=== PATIENT | female | born 1930 | race Hispanic/Latino ===

== ENCOUNTER 2017-07-22 20:54 | Inpatient (IN) | payer MEDICARE ==
[2017-07-22 20:54] VITALS: BMI 26.5
--- NOTE | 2017-07-22 21:15 | C.PDOC ---
History Of Present Illness 87 year old female sent to the ER via EMS from retirement for SOB for the past 2 days. Patient was found in severe respiratory distress with an initial low pulse ox, she was placed on a nonrebreather with an increase of her pulse ox to the 90s, however, patient was still very tachypneic and in severe respiratory distress. On arrival to ER, patient was placed on a bipap with improvement of pulse ox to 97-98, however, patient is still in significant respiratory distress. Patient has a Hx of bladder cancer and shoulder fracture due to recent fall, cannot obtain further Hx due to respiratory distress. Prior records reviewed, patient has a Hx of dementia and has baseline confusion, she was living on her own until 07/10/17 when she fell and fractured her shoulder, since then she has been in a retirement. Time Seen by Provider: 07/22/17 21:11 Chief Complaint (Nursing): Respiratory Distress History Per: EMS History/Exam Limitations: no limitations Onset/Duration Of Symptoms: Days Current Symptoms Are (Timing): Still Present Associated Symptoms: Other (SOB) Recent travel outside of the [place]: No Additional History Per: Prior Records Past Medical History Reviewed: Historical Data, Nursing Documentation, Vital Signs Vital Signs: Last Vital Signs Temp Pulse 105 H 07/22/17 22:47 Resp 18 07/22/17 22:47 BP 124/67 07/22/17 22:47 Pulse Ox 98 07/22/17 22:49 - Medical History PMH: Arthritis, Dementia, Emphysema, HTN, Hypercholesterolemia, Hyperlipidemia, Pneumonia, Chronic Kidney Disease (BLADDER TUMOR/MASS) - [facility] Procedures IMMOBILIZATION OF LEFT UPPER ARM USING OTHER DEVICE (07/10/17) RETROGRADE PYELOGRAM (02/20/12) TRANSURETH BLADD BIOPSY (02/20/12) TU DESTRUC BLADD LES NEC (02/20/12) Family History: States: Unknown Family Hx - Social History Hx Alcohol Use: Yes (wine occassionally) Hx Substance Use: No Review Of Systems Review Of Systems: ROS cannot be obtained secondary to pt's inabilty to answer questions. (Due to respiratory distress) Physical Exam - Physical Exam Appears: Other (In acute respiratory distress) Skin: Warm, Dry, Jaundice, Mottled Head: Atraumatic, Normacephalic Eye(s): bilateral: Normal Inspection Nose: Normal Oral Mucosa: Moist Neck: Normal, Supple Chest: Symmetrical, No Tenderness Cardiovascular: Rhythm Regular (Tachycardic) Respiratory: No Rales, Rhonchi (Coarse to right base), No Wheezing Gastrointestinal/Abdominal: Soft, No Tenderness, Distention, No Guarding, No Rebound Back: No CVA Tenderness Neurological/Psych: Oriented x3, Normal Speech ED Course And Treatment - Laboratory Results Result Diagrams: 07/22/17 21:14 07/22/17 21:14 Lab Interpretation: Abnormal (Elevated BUN 91, Cr 2.2, BNP 43108, Trop 0.7110) ECG: Interpreted By Me ECG Rhythm: Sinus Rhythm, R BBB (incomplete with Q waves inferior and anterior septal) ECG Interpretation: Abnormal O2 Sat by Pulse Oximetry: 98 (on BIPAP) Pulse Ox Interpretation: Normal - Radiology CXR: Interpreted by Me CXR Interpretation: Yes: No Acute Disease Progress Note: Blood work, CTA, CXR, EKG, and urinalysis ordered. Patient placed on BIPAP and Morphine and Ativan administered. Reevaluation Time: 22:58 Reassessment Condition: Improved (Patient resting quietly without respiratroy distress.) - Physician Consult Information Outcome Of Conversation: Case discussed with Dr Murillo and Dr Brandt. Patient to be admitted to ICU for possible WA with CHF and acute renal failure. Disposition - Disposition Disposition: HOSPITALIZED Disposition Time: 23:01 Condition: IMPROVED - POA Present On Arrival: None - Clinical Impression Clinical Impression: Congestive heart failure, Myocardial infarct, Acute renal failure - Scribe Statement The provider has reviewed the documentation as recorded by the Scribe Austin Bueno All medical record entries made by the Scribe were at my direction and personally dictated by me. I have reviewed the chart and agree that the record accurately reflects my personal performance of the history, physical exam, medical decision making, and the department course for this patient. I have also personally directed, reviewed, and agree with the discharge instructions and disposition.
[2017-07-22 21:16] LABS: BASO # 0.1 K/uL (0.0-0.2); BASO % 0.6 % (0.0-2.0); EOS % 0.3 % (0.0-4.0); LYMPH # 3.6 K/uL (1.0-4.3); MEAN CELL VOLUME 102.2 fL (81.0-99.0); MEAN CORPUSCULAR HEMOGLOBIN 34.1 pg (27.0-31.0); MEAN CORPUSCULAR HGB CONC 33.3 g/dL (33.0-37.0); MEAN PLATELET VOLUME 9.7 fL (7.2-11.7); MONO # 0.9 K/uL (0.0-0.8); MONO % 9.8 % (0.0-10.0); NEUT # 4.8 K/uL (1.8-7.0); NEUT % 51.3 % (50.0-75.0); NRBC % 0.3 % (0.0-2.0); RBC 3.22 Mil/uL (3.80-5.20); RED CELL DISTRIBUTION WIDTH 16.5 % (11.5-14.5); WHITE BLOOD COUNT 9.3 K/uL (4.8-10.8)
[2017-07-22 21:30] LABS: ALB/GLOB RATIO 0.9 (1.0-2.1); ALBUMIN 3.7 g/dL (3.5-5.0)
[2017-07-22 21:32] LABS: ARTERIAL BLOOD GAS O2 SAT 99.9 % (95-98); ARTERIAL BLOOD GAS PCO2 29 mm/Hg (35-45); ARTERIAL BLOOD GAS PH 7.36 (7.35-7.45); ARTERIAL BLOOD GAS PO2 364 mm/Hg (80-100); ARTERIAL BLOOD GAS TCO2 17.3 mmol/L (22-28)
[2017-07-22 21:38] LABS: PROTHROMBIN TIME 13.6 SECONDS (9.7-12.2)
[2017-07-22 21:39] LABS: INR 1.2
[2017-07-22 22:42] LABS: TROPONIN I 0.711 ng/mL (0.00-0.120)
[2017-07-22 23:07] LABS: SQUAMOUS EPITHIAL 136 /hpf (0-5); URINE BILIRUBIN NEGATIVE (NEGATIVE); URINE BLOOD NEGATIVE (NEGATIVE); URINE CLARITY Hazy (Clear); URINE GLUCOSE (UA) NORMAL (Normal); URINE LEUKOCYTE ESTERASE TRACE Leu/uL (Negative); URINE PROTEIN 1+ mg/dL (NEGATIVE); URINE UROBILINOGEN NORMAL mg/dL (0.2-1.0)
[2017-07-22 23:16] LABS: URINE COLOR YELLOW (YELLOW)
[2017-07-23] MEDS ORDERED: Morphine 4 MG/ML VIAL IVP PRN (00:15)
[2017-07-23] MEDS ORDERED: Furosemide 100 MG in Sodium Chloride 0.9% 90 ML IVP SCH (00:15)
--- NOTE | 2017-07-23 00:23 | CP.PCM.CON ---
History of Present Illness - History of Present Illness History of Present Illness: Chief command: Shortness of breath HPI: 87-year-old female with a history of dementia, arthritis, emphysema hypertension I cholesterol, renal insufficiency. Patient recently had an incident of fall, fracture right humerus, following that the patient went to rehabilitation. While she was in the rehabilitation she was having some difficulty in breathing for 2 days, today she was found increasing SOB, and was transferred to in hospital because of increasing worsening shortness of breath. Patient was placed on nonrebreather, under transferred to [facility] emergency room. In the hospital patient had a severe respiratory distress, given Ativan and morphine, placed on BiPAP, after that she felt slightly better. Now she is feeling somewhat better, still on BiPAP, some respiratory distress noted, denies any chest pain. No nausea no vomiting. She denies any vomiting she denies any cough. No fever no chills. Past medical history: Arthritis, dementia, COPD, high cholesterol chronic renal failure Allergies no known drug allergy Personal history nonsmoker nonalcoholic Patient was living by herself. Recently transferred to rehabilitation Family history noncontributory Review of system: Patient complaining of respiratory distress. Dizziness noted. No nausea no vomiting no fever. But complaining of pain generalized On examination: Currently patient is on BiPAP. Patient is slightly morning. Vital signs are stable otherwise. Temperature normal chest bilateral good air entry no wheezing or rales noted regular heart sound nontender abdomen no pedal edema Patient's labs reviewed Elevated BUN/creatinine level noted. Elevated proBNP level noted. Borderline hemoglobin. Chest x-ray nonspecific. CT of the head is currently pending Assessment and recommendation: 87-year-old female with multiple medical history recently hospitalized with this fall, right humeral fracture transferred to rehabilitation. Patient is currently admitted to the hospital with acute respiratory distress. Positive troponin noted. Non-ST elevation on the cardiogenic shock cannot be ruled out. Patient is also having worsening renal insufficiency Underlying pulmonary embolism cannot be ruled out. At this time there is no evidence of infection. We'll closely monitor. Respiratory support BiPAP. Bronchodilators. Fluid monitoring, diuretics. Cardiology evaluation and echocardiogram. Patient will been admitted to the intensive care unit to closely monitor. Past Patient History - Past Social History Smoking Status: Former Smoker - CARDIAC Hx Hypercholesterolemia: Yes Hx Hypertension: Yes - PULMONARY Hx Emphysema: Yes Hx Pneumonia: Yes - NEUROLOGICAL Hx Dementia: Yes - HEENT Hx HEENT Problems: No - RENAL Hx Chronic Kidney Disease: Yes (BLADDER TUMOR/MASS) - ENDOCRINE/METABOLIC Hx Endocrine Disorders: No - HEMATOLOGICAL/ONCOLOGICAL Hx Blood Transfusions: No Hx Blood Transfusion Reaction: No - INTEGUMENTARY Hx Dermatological Problems: Yes Hx Psoriasis: Yes (EXSTENSIVE SPECIALLY TO WHOLE BACK AND BUTTOCKS.FLUSHED SKIN. ) - MUSCULOSKELETAL/RHEUMATOLOGICAL Hx Arthritis: Yes - GENITOURINARY/GYNECOLOGICAL Hx Genitourinary Disorders: Yes Hx Bladder Cancer: Yes - PSYCHIATRIC Hx Substance Use: No - SURGICAL HISTORY Hx Surgeries: Yes (TONSILLECTOMY,BLADDER SX- TURBT,TONSILLECTOMY) - ANESTHESIA Hx Anesthesia Reactions: Yes (diff waking up) Hx Malignant Hyperthermia: No Meds Allergies/Adverse Reactions: Allergies Allergy/AdvReac Type Severity Reaction Status Date / Time No Known Allergies Allergy Verified 07/22/17 21:12 - Medications Medications: Current Medications Enoxaparin Sodium (Lovenox) 40 mg SC DAILY [facility] Furosemide (Lasix) 20 mg IVP DAILY [facility] Morphine Sulfate (Morphine) 2 mg IVP Q8 PRN PRN Reason: Pain, severe (8-10) Results - Vital Signs Recent Vital Signs: Last Vital Signs Temp Pulse 103 H 07/22/17 23:39 Resp 17 07/22/17 23:39 BP 116/73 07/22/17 23:39 Pulse Ox 100 07/22/17 23:39 - Labs Result Diagrams: 07/22/17 21:14 07/22/17 21:14 Labs: Laboratory Results - last 24 hr 07/22/17 07/22/17 07/22/17 21:14 21:14 21:14 WBC 9.3 RBC 3.22 L Hgb 11.0 Hct 33.0 L MCV 102.2 H MCH 34.1 H MCHC 33.3 RDW 16.5 H Plt Count 155 MPV 9.7 Neut % (Auto) 51.3 Lymph % (Auto) 38.0 [place] % (Auto) 9.8 Eos % (Auto) 0.3 Baso % (Auto) 0.6 Neut # (Auto) 4.8 Lymph # (Auto) 3.6 [place] # (Auto) 0.9 H Eos # (Auto) 0.0 Baso # (Auto) 0.1 PT 13.6 H INR 1.2 APTT 25 D-Dimer, Quantitative Cancelled Puncture Site pCO2 pO2 HCO3 ABG pH ABG Total CO2 ABG O2 Saturation ABG Base Excess Bertin Test ABG Potassium A-a O2 Difference Respiratory Index Glucose Lactate Vent Mode Mechanical Rate FiO2 Inspiratory BiPAP Expiratory BiPAP Crit Value Called To Crit Value Called By Crit Value Read Back Blood Gas Notified Time Sodium 146 Potassium 5.5 H Chloride 110 H Carbon Dioxide 17 L Anion Gap 25 H BUN 91 H Creatinine 2.2 H Est GFR ( Amer) 26 Est GFR (Non-Af Amer) 21 Random Glucose 189 H Calcium 10.0 Phosphorus 7.2 H Magnesium 2.5 H Total Bilirubin 1.5 H AST 67 H D ALT 45 Alkaline Phosphatase 63 Troponin I NT-Pro-B Natriuret Pep Total Protein 7.8 Albumin 3.7 Globulin 4.1 H Albumin/Globulin Ratio 0.9 L Arterial Blood Potassium Urine Color Urine Clarity Urine pH Ur Specific [place] Urine Protein Urine Glucose (UA) Urine Ketones Urine Blood Urine Nitrate Urine Bilirubin Urine Urobilinogen Ur Leukocyte Esterase Urine WBC (Auto) Urine RBC (Auto) Ur Squamous Epith Cells Hyaline Casts 07/22/17 07/22/17 07/22/17 21:26 21:40 22:18 WBC RBC Hgb Hct MCV MCH MCHC RDW Plt Count MPV Neut % (Auto) Lymph % (Auto) [place] % (Auto) Eos % (Auto) Baso % (Auto) Neut # (Auto) Lymph # (Auto) [place] # (Auto) Eos # (Auto) Baso # (Auto) PT INR APTT D-Dimer, Quantitative > 5250 H Puncture Site Rba pCO2 29 L pO2 364 H HCO3 19.0 L ABG pH 7.36 ABG Total CO2 17.3 L ABG O2 Saturation 99.9 H ABG Base Excess -7.7 L Bertin Test Na ABG Potassium 5.5 H A-a O2 Difference 313.0 Respiratory Index 0.9 Glucose 200 H Lactate 4.2 H* Vent Mode Bipap Mechanical Rate 14 FiO2 100.0 Inspiratory BiPAP 14 Expiratory BiPAP 7 Crit Value Called To Er physician Crit Value Called By Umberto rt Crit Value Read Back Y Blood Gas Notified Time 2130 Sodium 144.0 Potassium Chloride 112.0 H Carbon Dioxide Anion Gap BUN Creatinine Est GFR ( Amer) Est GFR (Non-Af Amer) Random Glucose Calcium Phosphorus Magnesium Total Bilirubin AST ALT Alkaline Phosphatase Troponin I 0.7110 H* NT-Pro-B Natriuret Pep 62221 H Total Protein Albumin Globulin Albumin/Globulin Ratio Arterial Blood Potassium 5.5 H Urine Color Urine Clarity Urine pH Ur Specific [place] Urine Protein Urine Glucose (UA) Urine Ketones Urine Blood Urine Nitrate Urine Bilirubin Urine Urobilinogen Ur Leukocyte Esterase Urine WBC (Auto) Urine RBC (Auto) Ur Squamous Epith Cells Hyaline Casts 07/22/17 22:59 WBC RBC Hgb Hct MCV MCH MCHC RDW Plt Count MPV Neut % (Auto) Lymph % (Auto) [place] % (Auto) Eos % (Auto) Baso % (Auto) Neut # (Auto) Lymph # (Auto) [place] # (Auto) Eos # (Auto) Baso # (Auto) PT INR APTT D-Dimer, Quantitative Puncture Site pCO2 pO2 HCO3 ABG pH ABG Total CO2 ABG O2 Saturation ABG Base Excess Bertin Test ABG Potassium A-a O2 Difference Respiratory Index Glucose Lactate Vent Mode Mechanical Rate FiO2 Inspiratory BiPAP Expiratory BiPAP Crit Value Called To Crit Value Called By Crit Value Read Back Blood Gas Notified Time Sodium Potassium Chloride Carbon Dioxide Anion Gap BUN Creatinine Est GFR ( Amer) Est GFR (Non-Af Amer) Random Glucose Calcium Phosphorus Magnesium Total Bilirubin AST ALT Alkaline Phosphatase Troponin I NT-Pro-B Natriuret Pep Total Protein Albumin Globulin Albumin/Globulin Ratio Arterial Blood Potassium Urine Color Yellow Urine Clarity Hazy Urine pH 6.0 Ur Specific [place] 1.016 Urine Protein 1+ H Urine Glucose (UA) Normal Urine Ketones Negative Urine Blood Negative Urine Nitrate Negative Urine Bilirubin Negative Urine Urobilinogen Normal Ur Leukocyte Esterase Trace Urine WBC (Auto) 27 H Urine RBC (Auto) 15 H Ur Squamous Epith Cells 136 H Hyaline Casts 6-10 H
[2017-07-23 06:40] LABS: BASO % 0.2 % (0.0-2.0); EOS % 0.1 % (0.0-4.0); HEMOGLOBIN 10.3 g/dL (11.0-16.0); LYMPH # 1.8 K/uL (1.0-4.3); LYMPH % 28.6 % (20.0-40.0); MEAN CELL VOLUME 100.8 fL (81.0-99.0); MEAN CORPUSCULAR HEMOGLOBIN 34.4 pg (27.0-31.0); MEAN CORPUSCULAR HGB CONC 34.1 g/dL (33.0-37.0); MEAN PLATELET VOLUME 9.9 fL (7.2-11.7); MONO # 0.8 K/uL (0.0-0.8); MONO % 12.1 % (0.0-10.0); NEUT # 3.7 K/uL (1.8-7.0); NRBC % 0.2 % (0.0-2.0); RED CELL DISTRIBUTION WIDTH 16.4 % (11.5-14.5); WHITE BLOOD COUNT 6.3 K/uL (4.8-10.8)
[2017-07-23 07:02] LABS: ALB/GLOB RATIO 0.9 (1.0-2.1); ALBUMIN 3.6 g/dL (3.5-5.0); CALCIUM 10.1 mg/dl (8.6-10.4)
[2017-07-23 07:18] LABS: CK-MB 5.21 ng/mL (0.0-3.38); TROPONIN I 0.771 ng/mL (0.00-0.120)
--- NOTE | 2017-07-23 09:23 | RAD ---
HISTORY: SOB COMPARISON: No prior. FINDINGS: LUNGS: Tubing extruded the right hemithorax. No definite airspace disease appreciated bilaterally. PLEURA: No significant pleural effusion identified, no pneumothorax apparent. CARDIOVASCULAR: Mild cardiomegaly is not excluded. No pulmonary vascular derangement. OSSEOUS STRUCTURES: No significant abnormalities. VISUALIZED UPPER ABDOMEN: Normal. OTHER FINDINGS: None. IMPRESSION: No acute pulmonary disease appreciable. Tubing obscures right hemithorax. Mild cardiomegaly not excluded. No pulmonary vascular congestion.
[2017-07-23] MEDS ORDERED: Enoxaparin 40 mg Syringe SC SCH (10:00)
[2017-07-23] MEDS ORDERED: Albuterol-Ipratrop 3 mg / 0.5 (3 ml) UD INH PRN (10:16)
[2017-07-23] MEDS: POLYETHYLENE GLYCOL 3350 17 GM/Dose PACKET PO SCH (10:40)
[2017-07-23] MEDS ORDERED: Dexmedetomidine Hydrochloride 200 MCG in Sodium Chloride 0.9% 48 ML IV PRN (12:35)
--- NOTE | 2017-07-23 17:46 | CP.PCM.CON ---
History of Present Illness - History of Present Illness History of Present Illness: Re: Respiratory distress Elevated serum troponin Chart imaging reviewed 87 year old patient presented with shortness of breath and placed on BIPAP with releif of hypoxemia and distress Post admission was noted to have elevated serum troponins and azotemia Patient has dementia and lives alone Denied chest pain prior heart disease Past medical Dementia Hyperlipidemia Azotemia COPD" Past surgery Fall/Fracture of the humerus (recent) Exam: No distress BIPAP in situ Lying flat Normal venous pressures Normal carotids ?PMI Normal heart sounds intensity No rub or murmurs 1+ edema bilateral pitting symmetrical DP ? EKG: unavailable CXR: reviewed Labs: reviewed Troponin 0.7 K 5.6 Glucose 189 Lactate 4.2 Creatinine 2.2 Hematocrit 33 D dimer 5250 BNP [id number] Past Patient History - Past Medical History & Family History Past Medical History?: Yes - Past Social History Smoking Status: Former Smoker - CARDIAC Hx Hypercholesterolemia: Yes Hx Hypertension: Yes - PULMONARY Hx Emphysema: Yes Hx Pneumonia: Yes - NEUROLOGICAL Hx Dementia: Yes - HEENT Hx HEENT Problems: No - RENAL Hx Chronic Kidney Disease: Yes (BLADDER TUMOR/MASS) - ENDOCRINE/METABOLIC Hx Endocrine Disorders: No - HEMATOLOGICAL/ONCOLOGICAL Hx Blood Transfusions: No Hx Blood Transfusion Reaction: No - INTEGUMENTARY Hx Dermatological Problems: Yes Hx Psoriasis: Yes (EXSTENSIVE SPECIALLY TO WHOLE BACK AND BUTTOCKS.FLUSHED SKIN. ) - MUSCULOSKELETAL/RHEUMATOLOGICAL Hx Arthritis: Yes - GENITOURINARY/GYNECOLOGICAL Hx Genitourinary Disorders: Yes Hx Bladder Cancer: Yes - PSYCHIATRIC Hx Substance Use: No - SURGICAL HISTORY Hx Surgeries: Yes (TONSILLECTOMY,BLADDER SX- TURBT,TONSILLECTOMY) - ANESTHESIA Hx Anesthesia Reactions: Yes (diff waking up) Hx Malignant Hyperthermia: No Meds Allergies/Adverse Reactions: Allergies Allergy/AdvReac Type Severity Reaction Status Date / Time No Known Allergies Allergy Verified 07/22/17 21:12 - Medications Medications: Current Medications Acetaminophen (Tylenol 325mg Tab) 650 mg PO Q4H PRN PRN Reason: Pain, Mild (1-3) Albuterol/Ipratropium (Duoneb 3 Mg/0.5 Mg (3 Ml) Ud) 3 ml INH RQ6 PRN PRN Reason: Wheezing Aspirin (Aspirin) 325 mg PO DAILY [facility] Last Admin: 07/23/17 10:00 Dose: Not Given Docusate Sodium (Colace) 100 mg PO BID [facility] Last Admin: 07/23/17 10:00 Dose: Not Given Enoxaparin Sodium (Lovenox) 40 mg SC DAILY [facility] Last Admin: 07/23/17 10:36 Dose: 40 mg Furosemide (Lasix) 20 mg IVP DAILY [facility] Last Admin: 07/23/17 10:36 Dose: 20 mg Pantoprazole Sodium (Protonix Inj) 40 mg IVP DAILY [facility] Last Admin: 07/23/17 10:36 Dose: 40 mg Polyethylene Glycol (Miralax) 17 gm PO DAILY [facility] Last Admin: 07/23/17 10:40 Dose: 17 gm Rosuvastatin Calcium (Crestor) 5 mg PO [facility] Thiamine HCl (Vitamin B1 Tab) 100 mg PO DAILY [facility] Last Admin: 07/23/17 10:00 Dose: Not Given Results - Vital Signs Recent Vital Signs: Last Vital Signs Temp 97.8 F 07/23/17 16:00 Pulse 92 H 07/23/17 17:03 Resp 14 07/23/17 17:03 BP 95/49 L 07/23/17 17:03 Pulse Ox 91 L 07/23/17 17:03 - Labs Result Diagrams: 07/23/17 06:34 07/23/17 06:37 Labs: Laboratory Results - last 24 hr 07/22/17 07/22/17 07/22/17 21:14 21:14 21:14 WBC 9.3 RBC 3.22 L Hgb 11.0 Hct 33.0 L MCV 102.2 H MCH 34.1 H MCHC 33.3 RDW 16.5 H Plt Count 155 MPV 9.7 Neut % (Auto) 51.3 Lymph % (Auto) 38.0 [place] % (Auto) 9.8 Eos % (Auto) 0.3 Baso % (Auto) 0.6 Neut # (Auto) 4.8 Lymph # (Auto) 3.6 [place] # (Auto) 0.9 H Eos # (Auto) 0.0 Baso # (Auto) 0.1 Differential Comment PT 13.6 H INR 1.2 APTT 25 D-Dimer, Quantitative Cancelled Puncture Site pCO2 pO2 HCO3 ABG pH ABG Total CO2 ABG O2 Saturation ABG Base Excess Bertin Test ABG Potassium A-a O2 Difference Respiratory Index Glucose Lactate Vent Mode Mechanical Rate FiO2 Inspiratory BiPAP Expiratory BiPAP Crit Value Called To Crit Value Called By Crit Value Read Back Blood Gas Notified Time Sodium 146 Potassium 5.5 H Chloride 110 H Carbon Dioxide 17 L Anion Gap 25 H BUN 91 H Creatinine 2.2 H Est GFR ( Amer) 26 Est GFR (Non-Af Amer) 21 Random Glucose 189 H Calcium 10.0 Phosphorus 7.2 H Magnesium 2.5 H Total Bilirubin 1.5 H AST 67 H D ALT 45 Alkaline Phosphatase 63 Total Creatine Kinase CK-MB (Mass) Troponin I NT-Pro-B Natriuret Pep Total Protein 7.8 Albumin 3.7 Globulin 4.1 H Albumin/Globulin Ratio 0.9 L Arterial Blood Potassium Urine Color Urine Clarity Urine pH Ur Specific [place] Urine Protein Urine Glucose (UA) Urine Ketones Urine Blood Urine Nitrate Urine Bilirubin Urine Urobilinogen Ur Leukocyte Esterase Urine WBC (Auto) Urine RBC (Auto) Ur Squamous Epith Cells Hyaline Casts 07/22/17 07/22/17 07/22/17 21:26 21:40 22:18 WBC RBC Hgb Hct MCV MCH MCHC RDW Plt Count MPV Neut % (Auto) Lymph % (Auto) [place] % (Auto) Eos % (Auto) Baso % (Auto) Neut # (Auto) Lymph # (Auto) [place] # (Auto) Eos # (Auto) Baso # (Auto) Differential Comment PT INR APTT D-Dimer, Quantitative > 5250 H Puncture Site Rba pCO2 29 L pO2 364 H HCO3 19.0 L ABG pH 7.36 ABG Total CO2 17.3 L ABG O2 Saturation 99.9 H ABG Base Excess -7.7 L Bertin Test Na ABG Potassium 5.5 H A-a O2 Difference 313.0 Respiratory Index 0.9 Glucose 200 H Lactate 4.2 H* Vent Mode Bipap Mechanical Rate 14 FiO2 100.0 Inspiratory BiPAP 14 Expiratory BiPAP 7 Crit Value Called To Er physician Crit Value Called By Umberto rt Crit Value Read Back Y Blood Gas Notified Time 2130 Sodium 144.0 Potassium Chloride 112.0 H Carbon Dioxide Anion Gap BUN Creatinine Est GFR ( Amer) Est GFR (Non-Af Amer) Random Glucose Calcium Phosphorus Magnesium Total Bilirubin AST ALT Alkaline Phosphatase Total Creatine Kinase CK-MB (Mass) Troponin I 0.7110 H* NT-Pro-B Natriuret Pep 34854 H Total Protein Albumin Globulin Albumin/Globulin Ratio Arterial Blood Potassium 5.5 H Urine Color Urine Clarity Urine pH Ur Specific [place] Urine Protein Urine Glucose (UA) Urine Ketones Urine Blood Urine Nitrate Urine Bilirubin Urine Urobilinogen Ur Leukocyte Esterase Urine WBC (Auto) Urine RBC (Auto) Ur Squamous Epith Cells Hyaline Casts 07/22/17 07/23/17 07/23/17 22:59 06:34 06:37 WBC 6.3 RBC 3.00 L Hgb 10.3 L Hct 30.3 L MCV 100.8 H MCH 34.4 H MCHC 34.1 RDW 16.4 H Plt Count 124 L D MPV 9.9 Neut % (Auto) 59.0 Lymph % (Auto) 28.6 [place] % (Auto) 12.1 H Eos % (Auto) 0.1 Baso % (Auto) 0.2 Neut # (Auto) 3.7 Lymph # (Auto) 1.8 [place] # (Auto) 0.8 Eos # (Auto) 0.0 Baso # (Auto) 0.0 Differential Comment PT INR APTT D-Dimer, Quantitative Puncture Site pCO2 pO2 HCO3 ABG pH ABG Total CO2 ABG O2 Saturation ABG Base Excess Bertin Test ABG Potassium A-a O2 Difference Respiratory Index Glucose Lactate Vent Mode Mechanical Rate FiO2 Inspiratory BiPAP Expiratory BiPAP Crit Value Called To Crit Value Called By Crit Value Read Back Blood Gas Notified Time Sodium 147 Potassium 5.5 H Chloride 113 H Carbon Dioxide 18 L Anion Gap 22 H BUN 96 H Creatinine 2.7 H Est GFR ( Amer) 20 Est GFR (Non-Af Amer) 17 Random Glucose 126 H Calcium 10.1 Phosphorus 7.8 H Magnesium 2.6 H Total Bilirubin 1.2 AST 44 H D ALT 49 Alkaline Phosphatase 68 Total Creatine Kinase 53 CK-MB (Mass) 5.21 H Troponin I 0.7710 H* NT-Pro-B Natriuret Pep Total Protein 7.6 Albumin 3.6 Globulin 4.0 H Albumin/Globulin Ratio 0.9 L Arterial Blood Potassium Urine Color Yellow Urine Clarity Hazy Urine pH 6.0 Ur Specific [place] 1.016 Urine Protein 1+ H Urine Glucose (UA) Normal Urine Ketones Negative Urine Blood Negative Urine Nitrate Negative Urine Bilirubin Negative Urine Urobilinogen Normal Ur Leukocyte Esterase Trace Urine WBC (Auto) 27 H Urine RBC (Auto) 15 H Ur Squamous Epith Cells 136 H Hyaline Casts 6-10 H Assessment & Plan - Assessment and Plan (Free Text) Assessment: 87 year old female presented with respiratory distress associated with azotemia elevated Ddimer troponin and serum BNP Mechanism of dyspnea is unclear; etiological candidates include cardiogenic/ iscehmic precipiated by azotemia versus pulmonary embolism Plan: EKG Echocardiogram Supportive therapy Anti-platelets
[2017-07-23] MEDS ORDERED: Sod Polystyrene Sulf 15 gm/60 ml Susp PO ONE (21:00)
[2017-07-24 06:19] LABS: BASO % 0.3 % (0.0-2.0); EOS % 0.1 % (0.0-4.0); HEMOGLOBIN 10.3 g/dL (11.0-16.0); LYMPH # 1.6 K/uL (1.0-4.3); LYMPH % 29.4 % (20.0-40.0); MEAN CORPUSCULAR HEMOGLOBIN 34.1 pg (27.0-31.0); MEAN CORPUSCULAR HGB CONC 34.1 g/dL (33.0-37.0); MEAN PLATELET VOLUME 9.6 fL (7.2-11.7); MONO # 0.6 K/uL (0.0-0.8); MONO % 10.5 % (0.0-10.0); NEUT # 3.3 K/uL (1.8-7.0); NEUT % 59.7 % (50.0-75.0); NRBC % 0.9 % (0.0-2.0); RBC 3.02 Mil/uL (3.80-5.20); RED CELL DISTRIBUTION WIDTH 16.3 % (11.5-14.5); WHITE BLOOD COUNT 5.6 K/uL (4.8-10.8)
[2017-07-24 06:43] LABS: ALB/GLOB RATIO 0.9 (1.0-2.1); ALBUMIN 3.6 g/dL (3.5-5.0); CALCIUM 9.1 mg/dl (8.6-10.4)
--- NOTE | 2017-07-24 09:00 | HP ---
CHIEF COMPLAINT: Shortness of breath, "I cannot breathe." HISTORY OF PRESENT ILLNESS: Ms. Angela Mazariegos is an 87-year-old female, was getting rehab in [place] , has history of COPD and asthma, started with shortness of breath. According to patient, she was having shortness of breath for the past two days. The patient was found to be in severe respiratory distress with an initial low pulse oxygenation. She was placed on a nonrebreather with increase of her pulse ox up to 90; however, the patient was still having tachypneic and severe respiratory distress. On arrival to ER, the patient was placed on a BiPAP with improvement of pulse oximetry of 97% to 98%. I saw the patient in the unit, was having BiPAP. The patient has a history of bladder cancer and shoulder fracture due to recent fall. The patient is not a good historian. The patient has history of dementia, confusion, fall, and fracture of her shoulder. PAST MEDICAL HISTORY: As above, arthritis, dementia, emphysema, hypertension, hypercholesterolemia, hyperlipidemia, pneumonia, chronic kidney disease, and bladder tumor/mass. FAMILY HISTORY: Father and mother, noncontributory. HABITS: Wine occasionally. Substance, no. Alcohol, this is not sure. REVIEW OF SYSTEMS: The patient was seen and examined at the bedside in the unit, having BiPAP, not a very good historian. No fever, no chills. No nausea, vomiting, or diarrhea. No hematuria or hematochezia. No swelling of the legs. Still having shortness of breath, dementia, hypercholesterolemia, azotemia, history of falls, fracture of the humerus, PHYSICAL EXAMINATION: VITAL SIGNS: Temperature 97.8, pulse 92, respiratory rate 14, and blood pressure 95/49. HEENT: Head: Normocephalic, atraumatic. Eyes: PERRLA. Extraocular muscles intact. Conjunctivae clear. Nose: Patent. Mucous membranes moist. NECK: Supple. No carotid bruits. The patient is still having BiPAP. CHEST: Bilaterally symmetrical. HEART: S1 and S2 positive. LUNGS: Clear to auscultation. ABDOMEN: Soft. Bowel sounds positive. No organomegaly. EXTREMITIES: No edema, no cyanosis. NEUROLOGICAL: The patient is awake and alert. Moving all 4 extremities. No focal deficits. MEDICATIONS: Tylenol, DuoNeb, aspirin, Colace, Lovenox, Lasix, Protonix, MiraLax, and Crestor. LABORATORY DATA: White blood cells 6.3, hemoglobin 10.3, hematocrit 30.3, and platelets 124. Sodium 147, potassium 5.5, BUN 92, creatinine 2.7, and glucose 126. ASSESSMENT AND PLAN: Ms. Angela Mazariegos is an 87-year-old female with anemia, thrombocytopenia, hyperkalemia, renal insufficiency, hyperchloremia, hyperglycemia, came with respiratory distress associated with azotemia and with D-dimer, troponin, and serum BNP. Mechanism of dyspnea is unclear. Etiological candidates include cardiogenic, ischemic precipitated by azotemia, venous pulmonary embolism. We reviewed EKG, echocardiography, antiplatelet therapy as per Dr. Kamilla Smith, seen by Dr. Franchesca Brandt, hydraulic lift driver. The patient has history of arthritis, dementia, chronic obstructive pulmonary disease, hypercholesterolemia, history of renal failure, is still on BiPAP with some respiratory distress noted. Denies any chest pain. Non-ST elevation of cardiogenic shock cannot be ruled out. We will continue close meeting, a discussion done with patient's nurse, and we will follow up. Desirae Murillo MD MTDD
[2017-07-24] MEDS: POLYETHYLENE GLYCOL 3350 17 GM/Dose PACKET PO SCH (09:04)
--- NOTE | 2017-07-24 10:49 | CP.PCM.PN ---
Subjective - Date & Time of Evaluation Date of Evaluation: 07/24/17 Time of Evaluation: 10:48 - Subjective Subjective: Still SOB and on supplemental O2. Objective - Vital Signs/Intake and Output Vital Signs (last 24 hours): Temp Pulse Resp BP Pulse Ox 97.4 F L 94 H 16 161/84 H 90 L 07/24/17 08:00 07/24/17 09:05 07/24/17 09:05 07/24/17 09:05 07/24/17 09:05 Intake and Output: 07/24/17 07/24/17 06:59 18:59 Intake Total 350 500 Output Total 560 Balance -210 500 - Medications Medications: Current Medications Acetaminophen (Tylenol 325mg Tab) 650 mg PO Q4H PRN PRN Reason: Pain, Mild (1-3) Albuterol/Ipratropium (Duoneb 3 Mg/0.5 Mg (3 Ml) Ud) 3 ml INH RQ8 [facility] Apixaban (Eliquis) 5 mg PO BID [facility] Aspirin (Aspirin) 325 mg PO DAILY [facility] Last Admin: 07/24/17 09:04 Dose: 325 mg Docusate Sodium (Colace) 100 mg PO BID [facility] Last Admin: 07/24/17 09:04 Dose: 100 mg Furosemide (Lasix) 20 mg IVP DAILY [facility] Last Admin: 07/24/17 09:03 Dose: 20 mg Cefepime HCl 1 gm/ Dextrose 50 mls @ 100 mls/hr IVPB DAILY [facility] PRN Reason: Protocol Sodium Chloride (Sodium Chloride 0.9%) 1,000 mls @ 75 mls/hr IV .[id number] [facility] Pantoprazole Sodium (Protonix Inj) 40 mg IVP BID [facility] Last Admin: 07/24/17 09:03 Dose: 40 mg Polyethylene Glycol (Miralax) 17 gm PO DAILY [facility] Last Admin: 07/24/17 09:04 Dose: 17 gm Rosuvastatin Calcium (Crestor) 5 mg PO HS [facility] Last Admin: 07/23/17 22:02 Dose: 5 mg Thiamine HCl (Vitamin B1 Tab) 100 mg PO DAILY [facility] Last Admin: 07/24/17 09:03 Dose: 100 mg - Labs Labs: 07/24/17 06:14 07/24/17 06:14 PT 13.6 SECONDS (9.7-12.2) H 07/22/17 21:14 INR 1.2 07/22/17 21:14 APTT 25 SECONDS (21-34) 07/22/17 21:14 - Head Exam Head Exam: NORMOCEPHALIC - Neck Exam Neck Exam: Normal Inspection - Respiratory Exam Respiratory Exam: Wheezes - Cardiovascular Exam Cardiovascular Exam: REGULAR RHYTHM - Extremities Exam Extremities Exam: Normal Inspection - Neurological Exam Neurological Exam: Oriented x3 Assessment and Plan (1) Acute renal failure Assessment & Plan: Elevated BUN/Creatinine. Hold lasix for now. Echo pending. Status: Acute (2) Congestive heart failure Assessment & Plan: Etiology? Diastolic vs systolic. Hold lasix. Fluid restriction. Treat DVT Status: Acute
--- NOTE | 2017-07-24 11:14 | RAD ---
HISTORY: SOB COMPARISON: Chest radiograph dated 07/22/2017. FINDINGS: LUNGS: No active pulmonary disease. PLEURA: No significant pleural effusion identified, no pneumothorax apparent. CARDIOVASCULAR: Atherosclerotic aortic calcifications. Cardiomediastinal silhouette stably enlarged. OSSEOUS STRUCTURES: Unchanged. VISUALIZED UPPER ABDOMEN: Normal. OTHER FINDINGS: None. IMPRESSION: No active disease.
[2017-07-24] MEDS: Sodium Chloride 0.9% 1,000 ML IV SCH (11:15)
--- NOTE | 2017-07-24 12:02 | VASCLAB ---
PROCEDURE: Lower Extremity Venous Duplex Exam. HISTORY: SOB, r/o DVT PRIORS: None. TECHNIQUE: Bilateral common femoral, femoral, popliteal and posterior tibial, peroneal and great saphenous veins were evaluated. Flow was assessed with color Doppler, compressibility, assessment of phasic flow and augmentation response. Report prepared by TYLER Barry FINDINGS: RIGHT: 1. Common Femoral Vein: 1.1. Compressibility - Fully compressible: Thrombus - None : Flow - Phasic: Augmentation -Normal: Reflux - None. 2. Femoral Vein: 2.1. Compressibility - Fully compressible: Thrombus - None : Flow - Phasic: Augmentation -Normal: Reflux - None. 3. Popliteal Vein: 3.1. Compressibility - Fully compressible: Thrombus - None : Flow - Phasic: Augmentation -Normal: Reflux - None. 4. Posterior Tibial Vein: (one vein not compressible at proximal calf) 4.1. Compressibility - Incompressible: Thrombus - Acute: Flow - Phasic: Augmentation -Normal: Reflux - None. 5. Peroneal Vein: 5.1. Compressibility - Fully compressible: Thrombus - None: Flow - Phasic: Augmentation -Normal: Reflux - None. 6. Great Saphenous Vein: (upper) 6.1. Compressibility - Fully compressible: Thrombus - None: Flow - Phasic: Augmentation - Normal: Reflux - None. LEFT: 1. Common Femoral Vein: 1.1. Compressibility - Partial: Thrombus - Acute: Flow - Reduced : Augmentation -Normal: Reflux - None. 2. Femoral Vein: 2.1. Compressibility - Incompressible: Thrombus - Acute: Flow - Absent : Augmentation -Normal: Reflux - None. 3. Popliteal Vein: 3.1. Compressibility - Incompressible: Thrombus - Acute : Flow - Absent : Augmentation -Normal: Reflux - None. 4. Posterior Tibial Vein: 4.1. Compressibility - Incompressible: Thrombus - Acute: Flow - Absent : Augmentation -Normal: Reflux - None. 5. Peroneal Vein: 5.1. Compressibility - Incompressible: Thrombus - Acute: Flow - Absent : Augmentation -Normal: Reflux - None. 6. Great Saphenous Vein: 6.1. Compressibility - Fully compressible: Thrombus - None: Flow - Phasic: Augmentation - Normal: Reflux - None. OTHER FINDINGS: Abnormal findings were reported by the architectural technologist, to QUANTITATIVE ASSOCIATELEAH Turner at 9:20 a.m. IMPRESSION: Right: Acute deep vein thrombosis of one right posterior tibial vein, at the proximal calf. Left: 1. Partially occlusive, acute deep vein thrombosis of the left common femoral vein, extending into the saphenofemoral junction. 2. Totally occluding acute deep vein thrombosis of the left femoral, popliteal, posterior tibial and peroneal veins.
--- NOTE | 2017-07-24 12:15 | CARD ---
APPROVED REPORT EKG Measurement Heart [id number] <Conclusion> Sinus tachycardia Possible Left atrial enlargement Possible Inferior infarct, age undetermined Abnormal ECG
--- NOTE | 2017-07-24 12:16 | CARD ---
APPROVED REPORT EKG Measurement Heart [id number] <Conclusion> Sinus tachycardia Possible Left atrial enlargement Possible Inferior infarct, age undetermined Anterior infarct, age undetermined Abnormal ECG
--- NOTE | 2017-07-24 13:25 | CP.PCM.CON ---
History of Present Illness - History of Present Illness History of Present Illness: Vascular Surgery- Dr. Cohen 87F pmhx significant for dementia, emphysema, arthritis, renal insufficiency was recently admitted to [facility] s/p mechanical fall and fracture of right. Patient went to rehab where recovery was complicated by increased difficulty breathing and shortness of breath where patient was transferred back to the hospital. Patient was worked up and was found to have bilateral LE DVT. patient was put on Lovenox and Platlets went from 174 to 79. Lovenox was held. Surgery was consulted for IVC filter placement. PMH: Dementia, Epmhysema/COPD, renal insufficency PSH: Tonsillectomy, Right hip surgery (2018), ALL: NKDA SocialHx: Hx of smoking 1ppd > 60years, quit 5 years ago, denies ETOH recreational drug use familyhx: non-contributory Review of Systems - Review of Systems All systems: reviewed and no additional remarkable complaints except - Constitutional Constitutional: As Per HPI Past Patient History - Past Medical History & Family History Past Medical History?: Yes - Past Social History Smoking Status: Former Smoker - CARDIAC Hx Hypercholesterolemia: Yes Hx Hypertension: Yes - PULMONARY Hx Emphysema: Yes Hx Pneumonia: Yes - NEUROLOGICAL Hx Dementia: Yes - HEENT Hx HEENT Problems: No - RENAL Hx Chronic Kidney Disease: Yes (BLADDER TUMOR/MASS) - ENDOCRINE/METABOLIC Hx Endocrine Disorders: No - HEMATOLOGICAL/ONCOLOGICAL Hx Blood Transfusions: No Hx Blood Transfusion Reaction: No - INTEGUMENTARY Hx Dermatological Problems: Yes Hx Psoriasis: Yes (EXSTENSIVE SPECIALLY TO WHOLE BACK AND BUTTOCKS.FLUSHED SKIN. ) - MUSCULOSKELETAL/RHEUMATOLOGICAL Hx Arthritis: Yes - GENITOURINARY/GYNECOLOGICAL Hx Genitourinary Disorders: Yes Hx Bladder Cancer: Yes - PSYCHIATRIC Hx Substance Use: No - SURGICAL HISTORY Hx Surgeries: Yes (TONSILLECTOMY,BLADDER SX- TURBT,TONSILLECTOMY) - ANESTHESIA Hx Anesthesia Reactions: Yes (diff waking up) Hx Malignant Hyperthermia: No Meds Allergies/Adverse Reactions: Allergies Allergy/AdvReac Type Severity Reaction Status Date / Time No Known Allergies Allergy Verified 07/22/17 21:12 - Medications Medications: Current Medications Acetaminophen (Tylenol 325mg Tab) 650 mg PO Q4H PRN PRN Reason: Pain, Mild (1-3) Albuterol/Ipratropium (Duoneb 3 Mg/0.5 Mg (3 Ml) Ud) 3 ml INH RQ8 [facility] Apixaban (Eliquis) 5 mg PO BID [facility] Aspirin (Aspirin) 325 mg PO DAILY [facility] Last Admin: 07/24/17 09:04 Dose: 325 mg Docusate Sodium (Colace) 100 mg PO BID [facility] Last Admin: 07/24/17 09:04 Dose: 100 mg Furosemide (Lasix) 20 mg IVP DAILY [facility] Last Admin: 07/24/17 09:03 Dose: 20 mg Cefepime HCl 1 gm/ Dextrose 50 mls @ 100 mls/hr IVPB Q24H [facility] PRN Reason: Protocol Last Admin: 07/24/17 11:40 Dose: 100 mls/hr Sodium Chloride (Sodium Chloride 0.9%) 1,000 mls @ 75 mls/hr IV .[id number] [facility] Last Admin: 07/24/17 11:15 Dose: 75 mls/hr Pantoprazole Sodium (Protonix Inj) 40 mg IVP BID [facility] Last Admin: 07/24/17 09:03 Dose: 40 mg Polyethylene Glycol (Miralax) 17 gm PO DAILY [facility] Last Admin: 07/24/17 09:04 Dose: 17 gm Rosuvastatin Calcium (Crestor) 5 mg PO HS [facility] Last Admin: 07/23/17 22:02 Dose: 5 mg Thiamine HCl (Vitamin B1 Tab) 100 mg PO DAILY [facility] Last Admin: 07/24/17 09:03 Dose: 100 mg Physical Exam - Constitutional Appears: Non-toxic, No Acute Distress - Head Exam Head Exam: ATRAUMATIC - Eye Exam Eye Exam: EOMI. absent: Scleral icterus - ENT Exam ENT Exam: Mucous Membranes Moist - Respiratory Exam Respiratory Exam: NORMAL BREATHING PATTERN. absent: Accessory Muscle Use, Respiratory Distress - Cardiovascular Exam Cardiovascular Exam: +S1, +S2. absent: Bradycardia, Tachycardia - GI/Abdominal Exam GI & Abdominal Exam: Soft. absent: Distended, Firm, Guarding, Tenderness - Extremities Exam Additional comments: bilateral lower extremity swelling - Neurological Exam Neurological exam: Alert, Oriented x3 - Skin Skin Exam: Intact, Warm Results - Vital Signs Recent Vital Signs: Last Vital Signs Temp 98.0 F 07/24/17 12:00 Pulse 94 H 07/24/17 12:00 Resp 24 07/24/17 12:00 BP 165/78 H 07/24/17 11:05 Pulse Ox 98 07/24/17 12:00 - Labs Result Diagrams: 07/24/17 06:14 07/24/17 06:14 Labs: Laboratory Results - last 24 hr 07/24/17 07/24/17 06:14 06:14 WBC 5.6 RBC 3.02 L Hgb 10.3 L Hct 30.2 L MCV 100.0 H MCH 34.1 H MCHC 34.1 RDW 16.3 H Plt Count 79 L D MPV 9.6 Neut % (Auto) 59.7 Lymph % (Auto) 29.4 Roosevelt % (Auto) 10.5 H Eos % (Auto) 0.1 Baso % (Auto) 0.3 Neut # (Auto) 3.3 Lymph # (Auto) 1.6 Roosevelt # (Auto) 0.6 Eos # (Auto) 0.0 Baso # (Auto) 0.0 Sodium 151 H Potassium 4.3 Chloride 114 H Carbon Dioxide 20 L Anion Gap 22 H BUN 109 H* Creatinine 2.8 H Est GFR ( Amer) 19 Est GFR (Non-Af Amer) 16 Random Glucose 102 Calcium 9.1 Phosphorus 6.5 H Magnesium 2.7 H Total Bilirubin 0.9 AST 29 ALT 36 Alkaline Phosphatase 67 Lactate Dehydrogenase 987 H Total Protein 7.5 Albumin 3.6 Globulin 3.9 Albumin/Globulin Ratio 0.9 L Assessment & Plan - Assessment and Plan (Free Text) Assessment: 87F w/ bilateral DVT, plt 79 Plan: - plan for IVC filter placement - NPO - d/w Dr. Cohen surgical attending PGY1
[2017-07-24] MEDS ORDERED: Propofol 10 mg/ml Inj (20 ML) ONE (14:43)
[2017-07-24] MEDS ORDERED: HEPARIN-NS 5,000 UNITS/500 ML 5,000 UNIT/500 ML BAG IV ONE (14:58)
[2017-07-24] MEDS ORDERED: Iodixanol 320 MG/ML 200 ML BOTTLE IV ONE (14:59)
[2017-07-24] MEDS ORDERED: Lactated Ringer's 1,000 ML IV ONE (15:00)
--- NOTE | 2017-07-24 16:01 | PCM.SURG1 ---
Surgeon's Initial Post Op Note - Surgeon's Notes Surgeon: Dr. Cohen Core Fitter: PGY1 Type of Anesthesia: None Pre-Operative Diagnosis: Bilateral DVT Operative Findings: Femoral vein visualized via ultrasound Post-Operative Diagnosis: as above Operation Performed: Inferior Vena Cava filter placement Specimen/Specimens Removed: none Estimated Blood Loss: EBL {In ML}: 10 Drains Used: No Drains Date of Surgery/Procedure: 07/24/17 Time of Surgery/Procedure: 16:00
[2017-07-24] MEDS: Albuterol-Ipratrop 3 mg / 0.5 (3 ml) UD INH SCH (16:04)
--- NOTE | 2017-07-24 18:16 | CT ---
PROCEDURE: CT HEAD WITHOUT CONTRAST. HISTORY: ams COMPARISON: None available. TECHNIQUE: Axial computed tomography images were obtained through the head/brain without intravenous contrast. Radiation dose: Total exam DLP = 1043.2 mGy-cm. This CT exam was performed using one or more of the following dose reduction techniques: Automated exposure control, adjustment of the mA and/or kV according to patient size, and/or use of iterative reconstruction technique. FINDINGS: Limited examination due to patient motion. HEMORRHAGE: No intracranial hemorrhage. BRAIN: No mass effect or edema. Atrophy. Chronic microvascular ischemic changes. VENTRICLES: Prominent. No hydrocephalus. CALVARIUM: Unremarkable. PARANASAL SINUSES: Unremarkable as visualized. No significant inflammatory changes. MASTOID AIR CELLS: Unremarkable as visualized. No inflammatory changes. OTHER FINDINGS: None. IMPRESSION: No acute intracranial pathology. Age-related changes.
[2017-07-25] MEDS: Sodium Chloride 0.9% 1,000 ML IV SCH (00:01)
[2017-07-25] MEDS: Albuterol-Ipratrop 3 mg / 0.5 (3 ml) UD INH SCH ×4 (00:38→23:46)
--- NOTE | 2017-07-25 01:44 | OP ---
PROCEDURE DATE: 07/23/2017 PREOPERATIVE DIAGNOSES: Deep vein thrombosis, left leg; renal failure; and thrombocytopenia. PROCEDURE CARRIED OUT: Placement of Argon ELITE, removal of filter via the right femoral vein with c-arm fluoroscopy, ultrasound-guided puncture, and micropuncture technique. SURGEON: Kian Cohen Jr., MD SENIOR JAVA WEB APPLICATION DEVELOPER: None. ANESTHESIOLOGIST: Dr. Venita CRNA INDICATIONS: The patient is an elderly woman with multiple problems including recent thrombocytopenia while on anticoagulation. OPERATIVE FINDINGS: Filter was inserted uneventfully via the right femoral vein. The patient was given local anesthesia. Using ultrasound guidance and micropuncture technique, the right femoral vein was punctured. Under fluoroscopic control, a guidewire was advanced centrally. A sheath dilator was passed over this and the filter was deployed with the tip at the level of the renal veins. Subsequent pictures confirmed, it was in upright position. Pressure was applied to the site and the procedure was terminated. The operation carried out was placement of Argon Option ELITE removal of filter via right femoral vein. Ultrasound imaging from the groin showed the vein was 13 mm in diameter with normal compressibility and no intraluminal thrombosis. Kian Cohen Jr., MD
[2017-07-25] MEDS: POLYETHYLENE GLYCOL 3350 17 GM/Dose PACKET PO SCH (09:02)
--- NOTE | 2017-07-25 09:27 | NM ---
COMPARISON: 07/24/2017 TECHNIQUE: 6.2 mCi technetium 99-m Xe-133 Gas. 4.0 mCI technetium 99-m MAA administered intravenously. FINDINGS: VENTILATION COMPONENT: Diminished ventilation likely patient related. PERFUSION COMPONENT: Heterogeneous distribution of radionuclide. No geographic, segmental, lobar abnormalities apparent on the present examination. IMPRESSION: Low probability ventilation perfusion scan for pulmonary embolism.
--- NOTE | 2017-07-25 10:15 | RAD ---
Chest x-ray single frontal view History: Shortness of breath. Comparison: None available. Findings: Mild venous congestion. Upper lobe granulomatous changes. Tortuous aorta. Top normal heart size. Degenerative changes in the spine and shoulders. Suggestion of a deformity of the left proximal humerus. Impression: Mild venous congestion. Upper lobe granulomatous changes. Tortuous aorta. Top normal heart size. Degenerative changes in the spine and shoulders. Suggestion of a deformity of the left proximal humerus.
--- NOTE | 2017-07-25 10:23 | CP.PCM.PN ---
Subjective - Date & Time of Evaluation Date of Evaluation: 07/25/17 Time of Evaluation: 10:20 - Subjective Subjective: Still short of breath and on supplemental O2. Some improvement in breathing. Objective - Vital Signs/Intake and Output Vital Signs (last 24 hours): Temp Pulse Resp BP Pulse Ox 97.4 F L 89 12 158/78 H 98 07/25/17 08:00 07/25/17 08:00 07/25/17 08:00 07/25/17 09:01 07/25/17 08:00 Intake and Output: 07/25/17 07/25/17 06:59 18:59 Intake Total 825 150 Output Total 750 Balance 75 150 - Medications Medications: Current Medications Acetaminophen (Tylenol 325mg Tab) 650 mg PO Q4H PRN PRN Reason: Pain, Mild (1-3) Albuterol/Ipratropium (Duoneb 3 Mg/0.5 Mg (3 Ml) Ud) 3 ml INH RQ8 [facility] Last Admin: 07/25/17 07:21 Dose: 3 ml Apixaban (Eliquis) 5 mg PO BID [facility] Last Admin: 07/25/17 09:01 Dose: 5 mg Aspirin (Aspirin) 325 mg PO DAILY [facility] Last Admin: 07/25/17 09:02 Dose: 325 mg Docusate Sodium (Colace) 100 mg PO BID [facility] Last Admin: 07/25/17 09:01 Dose: 100 mg Furosemide (Lasix) 20 mg IVP DAILY [facility] Last Admin: 07/25/17 09:01 Dose: 20 mg Cefepime HCl 1 gm/ Dextrose 50 mls @ 100 mls/hr IVPB Q24H [facility] PRN Reason: Protocol Last Admin: 07/24/17 11:40 Dose: 100 mls/hr Sodium Chloride (Sodium Chloride 0.9%) 1,000 mls @ 75 mls/hr IV .[id number] [facility] Last Admin: 07/25/17 00:01 Dose: 75 mls/hr Pantoprazole Sodium (Protonix Inj) 40 mg IVP BID [facility] Last Admin: 07/25/17 09:01 Dose: 40 mg Polyethylene Glycol (Miralax) 17 gm PO DAILY [facility] Last Admin: 07/25/17 09:02 Dose: 17 gm Rosuvastatin Calcium (Crestor) 5 mg PO HS [facility] Last Admin: 07/24/17 21:05 Dose: 5 mg Thiamine HCl (Vitamin B1 Tab) 100 mg PO DAILY [facility] Last Admin: 07/25/17 09:01 Dose: 100 mg - Labs Labs: 07/24/17 06:14 07/24/17 06:14 PT 13.6 SECONDS (9.7-12.2) H 07/22/17 21:14 INR 1.2 07/22/17 21:14 APTT 25 SECONDS (21-34) 07/22/17 21:14 - Head Exam Head Exam: NORMOCEPHALIC - Respiratory Exam Respiratory Exam: Wheezes - Cardiovascular Exam Cardiovascular Exam: REGULAR RHYTHM - Extremities Exam Extremities Exam: Normal Inspection - Neurological Exam Neurological Exam: Oriented x3 Assessment and Plan (1) Acute renal failure Assessment & Plan: Most likely over diuresis. D/C lasix. IV fluids. Status: Acute (2) Congestive heart failure Assessment & Plan: Diastolic dysfunction. Reviewed ECHO. Normal LV systolic function. Status: Acute (3) HTN (hypertension) Assessment & Plan: Control BP. If needed add calcium channel blockers in regimen. Status: Chronic
--- NOTE | 2017-07-25 11:03 | CP.PCM.PN ---
Subjective - Date & Time of Evaluation Date of Evaluation: 07/25/17 Time of Evaluation: 06:40 - Subjective Subjective: Vascular Surgery- Dr. Cohen Patient seen and examined at bedside this AM. No acute events overnight. Right femoral site Clean dry intact, no sign of hematoma. Objective - Vital Signs/Intake and Output Vital Signs (last 24 hours): Temp Pulse Resp BP Pulse Ox 97.4 F L 89 12 158/78 H 98 07/25/17 08:00 07/25/17 08:00 07/25/17 08:00 07/25/17 09:01 07/25/17 08:00 Intake and Output: 07/25/17 07/25/17 06:59 18:59 Intake Total 825 150 Output Total 750 Balance 75 150 - Medications Medications: Current Medications Acetaminophen (Tylenol 325mg Tab) 650 mg PO Q4H PRN PRN Reason: Pain, Mild (1-3) Albuterol/Ipratropium (Duoneb 3 Mg/0.5 Mg (3 Ml) Ud) 3 ml INH RQ8 [facility] Last Admin: 07/25/17 07:21 Dose: 3 ml Apixaban (Eliquis) 5 mg PO BID [facility] Last Admin: 07/25/17 09:01 Dose: 5 mg Aspirin (Aspirin) 325 mg PO DAILY [facility] Last Admin: 07/25/17 09:02 Dose: 325 mg Docusate Sodium (Colace) 100 mg PO BID [facility] Last Admin: 07/25/17 09:01 Dose: 100 mg Cefepime HCl 1 gm/ Dextrose 50 mls @ 100 mls/hr IVPB Q24H [facility] PRN Reason: Protocol Last Admin: 07/24/17 11:40 Dose: 100 mls/hr Sodium Chloride (Sodium Chloride 0.9%) 1,000 mls @ 75 mls/hr IV .[id number] [facility] Last Admin: 07/25/17 00:01 Dose: 75 mls/hr Pantoprazole Sodium (Protonix Inj) 40 mg IVP BID [facility] Last Admin: 07/25/17 09:01 Dose: 40 mg Polyethylene Glycol (Miralax) 17 gm PO DAILY [facility] Last Admin: 07/25/17 09:02 Dose: 17 gm Rosuvastatin Calcium (Crestor) 5 mg PO HS [facility] Last Admin: 07/24/17 21:05 Dose: 5 mg Sevelamer Carbonate (Renvela) 800 mg PO TIDCC [facility] Thiamine HCl (Vitamin B1 Tab) 100 mg PO DAILY [facility] Last Admin: 07/25/17 09:01 Dose: 100 mg - Labs Labs: 07/24/17 06:14 07/24/17 06:14 PT 13.6 SECONDS (9.7-12.2) H 07/22/17 21:14 INR 1.2 07/22/17 21:14 APTT 25 SECONDS (21-34) 07/22/17 21:14 - Constitutional Appears: Non-toxic, No Acute Distress - Eye Exam Eye Exam: EOMI - ENT Exam ENT Exam: Mucous Membranes Moist - Respiratory Exam Respiratory Exam: absent: Accessory Muscle Use, Respiratory Distress - GI/Abdominal Exam GI & Abdominal Exam: Distended, Soft. absent: Firm, Guarding - Extremities Exam Additional comments: Right femoral dressing C/D/I. No hematoma appreciated - Neurological Exam Neurological Exam: Awake - Skin Skin Exam: Intact, Warm Assessment and Plan - Assessment and Plan (Free Text) Assessment: 87F s/p IVC filter placement POD#1 Plan: - Right femoral site clean, no signs of hematoma - medical management per primary and ICU team - no further surgical intervention indicated at this time - discussed w/ Dr. Cohen surgical attending PGY1
[2017-07-25] MEDS ORDERED: Sodium Chloride 0.45% 1,000 ML IV SCH (11:45)
--- NOTE | 2017-07-25 12:15 | CP.CCUPN ---
<Gadiel Joe - Last Filed: 07/25/17 12:12> CCU Subjective - Physician Review Subjective (Free Text): Patient has been seen and examined at bedside. NO overnight events reported. No complaints of chest pain of SOB. Tolerating 3L of NC. 07/25/17 12:17 CCU Objective - Vital Signs / Intake & Output Vital Signs (Last 4 hours): Vital Signs BP 07/25/17 09:01 158/78 H Intake and Output (Last 8hrs): Intake & Output 07/24/17 07/25/17 07/25/17 22:59 06:59 14:59 Intake Total 625 600 150 Output Total 750 Balance 625 -150 150 Intake: Intake, IV Amount 225 600 150 Left Wrist 225 600 150 Oral 400 Output: Urine 750 Urine, Voided 750 Other: # Voids Urine, Voided 400 - Physical Exam Head: Positive for: Atraumatic, Normocephalic Extroacular Muscles: Positive for: EOMI Respiratory/Chest: Positive for: Clear to Auscultation Cardiovascular: Positive for: Regular Rate and Rhythm, Normal S1, S2 Abdomen: Positive for: Normal Bowel Sounds. Negative for: Tenderness Lower Extremity: Negative for: Edema Neurological: Positive for: GCS=15 - Medications Active Medications: Active Medications Generic Name Dose Route Start Last Admin Trade Name Freq PRN Reason Stop Dose Admin Acetaminophen 650 mg 07/23/17 08:48 Tylenol 325mg Tab PO Q4H PRN Pain, Mild (1-3) Albuterol/Ipratropium 3 ml 07/24/17 16:00 07/25/17 07:21 Duoneb 3 Mg/0.5 Mg (3 Ml) Ud INH 3 ml RQ8 [facility] Administration Apixaban 5 mg 07/24/17 10:30 07/25/17 09:01 Eliquis PO 5 mg BID [facility] Administration Aspirin 325 mg 07/23/17 10:00 07/25/17 09:02 Aspirin PO 325 mg DAILY [facility] Administration Docusate Sodium 100 mg 07/23/17 10:00 07/25/17 09:01 Colace PO 100 mg BID [facility] Administration Cefepime HCl 1 gm/ Dextrose 50 mls @ 100 mls/hr 07/24/17 11:00 07/24/17 11:40 IVPB 100 mls/hr Q24H [facility] Administration Protocol Sodium Chloride 1,000 mls @ 75 mls/hr 07/25/17 11:45 Sodium Chloride 0.45% IV .[id number] [facility] Pantoprazole Sodium 40 mg 07/24/17 10:00 07/25/17 09:01 Protonix Inj IVP 40 mg BID [facility] Administration Polyethylene Glycol 17 gm 07/23/17 10:00 07/25/17 09:02 Miralax PO 17 gm DAILY [facility] Administration Rosuvastatin Calcium 5 mg 07/23/17 22:00 07/24/17 21:05 Crestor PO 5 mg HS [facility] Administration Sevelamer Carbonate 800 mg 07/25/17 12:00 Renvela PO TIDCC [facility] Thiamine HCl 100 mg 07/23/17 10:00 07/25/17 09:01 Vitamin B1 Tab PO 100 mg DAILY [facility] Administration - Patient Studies Lab Studies: Microbiology Studies 07/23/17 06:42 MRSA Culture (Admit) - Final Naris MRSA NOT DETECTED 07/23/17 01:42 Blood Culture - Preliminary Blood NO GROWTH AFTER 48 HOURS 07/23/17 01:42 Blood Culture - Preliminary Blood NO GROWTH AFTER 48 HOURS 07/22/17 08:00 Urine Culture - Final Urine,Catheterized No Growth (<1,000 CFU/ML) Review of Systems - Constitutional Constitutional: absent: Fever, Chills - Cardiovascular Cardiovascular: absent: Chest Pain, Dyspnea - Respiratory Respiratory: absent: Dyspnea - Gastrointestinal Gastrointestinal: UNREMARKABLE. absent: Abdominal Pain - Musculoskeletal Musculoskeletal: UNREMARKABLE - Neurological Neurological: UNREMARKABLE. absent: Dizziness Critical Care Progress Note - Nutrition Nutrition: Nutrition Category Date Time Status Renal Diet [DIET] Diets 07/23/17 Breakfast Active Assessment/Plan - Assessment and Plan (Free Text) Assessment: 87-year-old female with a history of dementia, arthritis, emphysema hypertension I cholesterol, renal insufficiency admitted for evaluation and treatment of SOB. Was on BiPAP now tolerating 3 L of NC. Plan: Neuro: A:Dementia GCS: 15 Sedation: None Head CT on Admision - NEGATIVE Cardio: A: Elevated Troponins, HTN, HLD, B/L DVT Lovenox switched to Eliquis after patient was thrombocytopenic after Lovenox Bolus V/Q Scan: Low probability of PE US LE: Bilateral DVT. ECHO: Pending read, prelim report shows Normal EF (71%) Cont. Eliquis 5 BID. Cont. ASA 325 Daily. Crestor 5 PO HIS POD 1 of IVC Filter. Pulm: A: Emphysema, Dyspnea (Improved), Cont. DuoNeb Q8H CXR () Mild venous congestion. Upper lobe granulomatous changes. Tortuous aorta.Top normal heart size. Degenerative changes in the spine and shoulders. Suggestion of a deformity of the left proximal humerus. Currently on 3L NC. GI A: Constipation Miralax Daily Colace 100 BID Protonix 40 BID Diet: Renal Renal A: DEAN on CKD, Hypernatremia Pre-Renal Etiology? Lasix DC'd Nephrology on Consult. Renal US per Nephro Renvela started per Nephro. Switched NS to 1/2NS @ 75cc per hour. Urine Sodium and Creatinine per Nephro - PENDING Microalbumin with Cr and Total Protein per Nephro - PENDING ID Blood/Urine Cultures are NEGATIVE Elevated Lactate on Admission likely from hypoperfusion No Fever, No Leukocytosis Cont. Cefepime for empiric coverage. Heme/Onc: A: Possible HIT HIT Studies - PENDING. Proph Eliquis/Protonix PICC line to be put in today due to poor access and possible need for truck terminal manager access Patient discussed with ICU Attending Gadiel Joe, PGY-1 <Parag Long S - Last Filed: 07/26/17 16:24> CCU Objective - Vital Signs / Intake & Output Vital Signs (Last 4 hours): Vital Signs Pulse Resp BP Pulse Ox 07/26/17 13:19 93 H 23 184/79 H 93 L 07/26/17 13:01 86 15 194/87 H 97 07/26/17 13:00 85 18 171/79 H 97 07/26/17 12:25 83 15 97 Intake and Output (Last 8hrs): Intake & Output 07/26/17 07/26/17 07/26/17 06:59 14:59 22:59 Intake Total 825 300 Output Total 284 Balance 541 300 Intake: Intake, IV Amount 825 300 Left Wrist 825 300 Output: Urine 284 Urine, Voided 284 - Medications Active Medications: Active Medications Generic Name Dose Route Start Last Admin Trade Name Freq PRN Reason Stop Dose Admin Acetaminophen 650 mg 07/23/17 08:48 Tylenol 325mg Tab PO Q4H PRN Pain, Mild (1-3) Albuterol/Ipratropium 3 ml 07/24/17 16:00 07/26/17 15:50 Duoneb 3 Mg/0.5 Mg (3 Ml) Ud INH 3 ml RQ8 [facility] Administration Apixaban 5 mg 07/24/17 10:30 07/26/17 10:16 Eliquis PO 5 mg BID [facility] Administration Aspirin 325 mg 07/23/17 10:00 07/26/17 10:16 Aspirin PO 325 mg DAILY [facility] Administration Docusate Sodium 100 mg 07/23/17 10:00 07/26/17 10:17 Colace PO 100 mg BID [facility] Administration Ergocalciferol 1 cap 07/26/17 09:45 07/26/17 13:15 Drisdol 50,000 Intl Units Cap PO 1 cap Q7D [facility] Administration Ferrous Gluconate 324 mg 07/25/17 18:00 07/26/17 13:15 Fergon PO 324 mg TID [facility] Administration Cefepime HCl 1 gm/ Dextrose 50 mls @ 100 mls/hr 07/24/17 11:00 07/26/17 10:18 IVPB 100 mls/hr Q24H [facility] Administration Protocol Dextrose 1,000 mls @ 75 mls/hr 07/26/17 09:45 Dextrose 5% In Water 1000 Ml IV .[id number] [facility] Pantoprazole Sodium 40 mg 07/24/17 10:00 07/26/17 10:17 Protonix Inj IVP 40 mg BID [facility] Administration Polyethylene Glycol 17 gm 07/23/17 10:00 07/26/17 11:39 Miralax PO Not Given DAILY [facility] Rosuvastatin Calcium 5 mg 07/23/17 22:00 07/25/17 22:14 Crestor PO 5 mg HS [facility] Administration Thiamine HCl 100 mg 07/23/17 10:00 07/26/17 10:17 Vitamin B1 Tab PO 100 mg DAILY [facility] Administration Vitamin A 1 ea 07/25/17 18:00 07/26/17 10:17 Vitamin A & D Oint Ud Foilpak TOP 1 ea BID [facility] Administration Vitamin B Complex/Vit C/Folic Acid 1 tab 07/26/17 08:00 07/26/17 10:16 Nephro-Paul PO 1 tab 0800 [facility] Administration - Patient Studies Lab Studies: Microbiology Studies 07/23/17 01:42 Blood Culture - Preliminary Blood NO GROWTH AFTER 3 DAYS 07/23/17 01:42 Blood Culture - Preliminary Blood NO GROWTH AFTER 3 DAYS Lab Studies 07/26/17 07/26/17 07/26/17 Range/Units 06:15 06:15 06:15 WBC (4.8-10.8) K/uL RBC (3.80-5.20) Mil/uL Hgb (11.0-16.0) g/dL Hct (34.0-47.0) % MCV (81.0-99.0) fL MCH (27.0-31.0) pg MCHC (33.0-37.0) g/dL RDW (11.5-14.5) % Plt Count (130-400) K/uL MPV (7.2-11.7) fL Neut % (Auto) (50.0-75.0) % Lymph % (Auto) (20.0-40.0) % Rogers % (Auto) (0.0-10.0) % Eos % (Auto) (0.0-4.0) % Baso % (Auto) (0.0-2.0) % Neut # (Auto) (1.8-7.0) K/uL Lymph # (Auto) (1.0-4.3) K/uL Rogers # (Auto) (0.0-0.8) K/uL Eos # (Auto) (0.0-0.7) K/uL Baso # (Auto) (0.0-0.2) K/uL PT 16.6 H (9.7-12.2) SECONDS INR 1.5 APTT 31 (21-34) SECONDS Sodium 157 H (132-148) mmol/L Potassium 3.8 (3.6-5.2) mmol/L Chloride 119 H (98-107) mmol/L Carbon Dioxide 25 (22-30) mmol/L Anion Gap 17 (10-20) BUN 77 H (7-17) mg/dL Creatinine 1.5 H (0.7-1.2) mg/dL Est GFR ( Amer) 40 Est GFR (Non-Af Amer) 33 Random Glucose 86 (65-105) mg/dL Calcium 9.0 (8.6-10.4) mg/dl Phosphorus 3.0 (2.5-4.5) mg/dL Magnesium 2.2 (1.6-2.3) mg/dL Iron 55 (37-170) ug/dL TIBC 313 (250-450) ug/dL % Saturation 18 L (20-55) Ferritin 189.0 ng/mL Total Bilirubin 1.3 (0.2-1.3) mg/dL AST 30 (14-36) U/L ALT 27 (9-52) U/L Alkaline Phosphatase 65 (38-126) U/L Troponin I 0.2270 H* (0.00-0.120) ng/mL Total Protein 6.9 (6.3-8.3) g/dL Albumin 3.4 L (3.5-5.0) g/dL Globulin 3.5 (2.2-3.9) gm/dL Albumin/Globulin Ratio 1.0 (1.0-2.1) 25-OH Vitamin D Total 23.5 L (30.0-100.0) NG/ML Urine Color (YELLOW) Urine Clarity (Clear) Urine pH (5.0-8.0) Ur Specific [place] (1.003-1.030) Urine Protein (NEGATIVE) mg/dL Urine Glucose (UA) (Normal) mg/dL Urine Ketones (NEGATIVE) mg/dL Urine Blood (NEGATIVE) Urine Nitrate (NEGATIVE) Urine Bilirubin (NEGATIVE) Urine Urobilinogen (0.2-1.0) mg/dL Ur Leukocyte Esterase (Negative) Wilfrid/uL Urine WBC (Auto) (0-5) /hpf Urine RBC (Auto) (0-3) /hpf Ur Squamous Epith Cells (0-5) /hpf Uric Acid Crystals (<OCC) /hpf Urine Bacteria (<OCC) Ur Random Creatinine mg/dL U Random Total Protein (0.0-12.0) mg/dL Ur Random Sodium mmol/L Urine Microalbumin (0.0-16.6) mg/L 07/26/17 07/25/17 07/25/17 Range/Units 06:13 23:30 20:50 WBC 4.7 L (4.8-10.8) K/uL RBC 2.99 L (3.80-5.20) Mil/uL Hgb 10.2 L (11.0-16.0) g/dL Hct 30.4 L (34.0-47.0) % MCV 101.8 H (81.0-99.0) fL MCH 34.3 H (27.0-31.0) pg MCHC 33.7 (33.0-37.0) g/dL RDW 16.2 H (11.5-14.5) % Plt Count 86 L (130-400) K/uL MPV 10.3 (7.2-11.7) fL Neut % (Auto) 55.1 (50.0-75.0) % Lymph % (Auto) 32.6 (20.0-40.0) % Rogers % (Auto) 11.3 H (0.0-10.0) % Eos % (Auto) 0.6 (0.0-4.0) % Baso % (Auto) 0.4 (0.0-2.0) % Neut # (Auto) 2.6 (1.8-7.0) K/uL Lymph # (Auto) 1.5 (1.0-4.3) K/uL Rogers # (Auto) 0.5 (0.0-0.8) K/uL Eos # (Auto) 0.0 (0.0-0.7) K/uL Baso # (Auto) 0.0 (0.0-0.2) K/uL PT (9.7-12.2) SECONDS INR APTT (21-34) SECONDS Sodium (132-148) mmol/L Potassium (3.6-5.2) mmol/L Chloride (98-107) mmol/L Carbon Dioxide (22-30) mmol/L Anion Gap (10-20) BUN (7-17) mg/dL Creatinine (0.7-1.2) mg/dL Est GFR ( Amer) Est GFR (Non-Af Amer) Random Glucose (65-105) mg/dL Calcium (8.6-10.4) mg/dl Phosphorus (2.5-4.5) mg/dL Magnesium (1.6-2.3) mg/dL Iron (37-170) ug/dL TIBC (250-450) ug/dL % Saturation (20-55) Ferritin ng/mL Total Bilirubin (0.2-1.3) mg/dL AST (14-36) U/L ALT (9-52) U/L Alkaline Phosphatase (38-126) U/L Troponin I (0.00-0.120) ng/mL Total Protein (6.3-8.3) g/dL Albumin (3.5-5.0) g/dL Globulin (2.2-3.9) gm/dL Albumin/Globulin Ratio (1.0-2.1) 25-OH Vitamin D Total (30.0-100.0) NG/ML Urine Color (YELLOW) Urine Clarity (Clear) Urine pH (5.0-8.0) Ur Specific [place] (1.003-1.030) Urine Protein (NEGATIVE) mg/dL Urine Glucose (UA) (Normal) mg/dL Urine Ketones (NEGATIVE) mg/dL Urine Blood (NEGATIVE) Urine Nitrate (NEGATIVE) Urine Bilirubin (NEGATIVE) Urine Urobilinogen (0.2-1.0) mg/dL Ur Leukocyte Esterase (Negative) Wilfrid/uL Urine WBC (Auto) (0-5) /hpf Urine RBC (Auto) (0-3) /hpf Ur Squamous Epith Cells (0-5) /hpf Uric Acid Crystals (<OCC) /hpf Urine Bacteria (<OCC) Ur Random Creatinine 58.6 mg/dL U Random Total Protein 18.0 H (0.0-12.0) mg/dL Ur Random Sodium 118 mmol/L Urine Microalbumin 36.8 H (0.0-16.6) mg/L 07/25/17 Range/Units 20:30 WBC (4.8-10.8) K/uL RBC (3.80-5.20) Mil/uL Hgb (11.0-16.0) g/dL Hct (34.0-47.0) % MCV (81.0-99.0) fL MCH (27.0-31.0) pg MCHC (33.0-37.0) g/dL RDW (11.5-14.5) % Plt Count (130-400) K/uL MPV (7.2-11.7) fL Neut % (Auto) (50.0-75.0) % Lymph % (Auto) (20.0-40.0) % Rogers % (Auto) (0.0-10.0) % Eos % (Auto) (0.0-4.0) % Baso % (Auto) (0.0-2.0) % Neut # (Auto) (1.8-7.0) K/uL Lymph # (Auto) (1.0-4.3) K/uL Rogers # (Auto) (0.0-0.8) K/uL Eos # (Auto) (0.0-0.7) K/uL Baso # (Auto) (0.0-0.2) K/uL PT (9.7-12.2) SECONDS INR APTT (21-34) SECONDS Sodium (132-148) mmol/L Potassium (3.6-5.2) mmol/L Chloride (98-107) mmol/L Carbon Dioxide (22-30) mmol/L Anion Gap (10-20) BUN (7-17) mg/dL Creatinine (0.7-1.2) mg/dL Est GFR ( Amer) Est GFR (Non-Af Amer) Random Glucose (65-105) mg/dL Calcium (8.6-10.4) mg/dl Phosphorus (2.5-4.5) mg/dL Magnesium (1.6-2.3) mg/dL Iron (37-170) ug/dL TIBC (250-450) ug/dL % Saturation (20-55) Ferritin ng/mL Total Bilirubin (0.2-1.3) mg/dL AST (14-36) U/L ALT (9-52) U/L Alkaline Phosphatase (38-126) U/L Troponin I (0.00-0.120) ng/mL Total Protein (6.3-8.3) g/dL Albumin (3.5-5.0) g/dL Globulin (2.2-3.9) gm/dL Albumin/Globulin Ratio (1.0-2.1) 25-OH Vitamin D Total (30.0-100.0) NG/ML Urine Color Yellow (YELLOW) Urine Clarity Hazy (Clear) Urine pH 6.0 (5.0-8.0) Ur Specific [place] 1.023 (1.003-1.030) Urine Protein Negative (NEGATIVE) mg/dL Urine Glucose (UA) Normal (Normal) mg/dL Urine Ketones Negative (NEGATIVE) mg/dL Urine Blood 1+ H (NEGATIVE) Urine Nitrate Negative (NEGATIVE) Urine Bilirubin Negative (NEGATIVE) Urine Urobilinogen Normal (0.2-1.0) mg/dL Ur Leukocyte Esterase Neg (Negative) Wilfrid/uL Urine WBC (Auto) 2 (0-5) /hpf Urine RBC (Auto) 10 H (0-3) /hpf Ur Squamous Epith Cells 8 H (0-5) /hpf Uric Acid Crystals Occ H (<OCC) /hpf Urine Bacteria Rare (<OCC) Ur Random Creatinine mg/dL U Random Total Protein (0.0-12.0) mg/dL Ur Random Sodium mmol/L Urine Microalbumin (0.0-16.6) mg/L Laboratory Results - last 24 hr 07/25/17 07/25/17 07/25/17 20:30 20:50 23:30 WBC RBC Hgb Hct MCV MCH MCHC RDW Plt Count MPV Neut % (Auto) Lymph % (Auto) Rogers % (Auto) Eos % (Auto) Baso % (Auto) Neut # (Auto) Lymph # (Auto) Rogers # (Auto) Eos # (Auto) Baso # (Auto) PT INR APTT Sodium Potassium Chloride Carbon Dioxide Anion Gap BUN Creatinine Est GFR ( Amer) Est GFR (Non-Af Amer) Random Glucose Calcium Phosphorus Magnesium Iron TIBC % Saturation Ferritin Total Bilirubin AST ALT Alkaline Phosphatase Troponin I Total Protein Albumin Globulin Albumin/Globulin Ratio 25-OH Vitamin D Total Urine Color Yellow Urine Clarity Hazy Urine pH 6.0 Ur Specific [place] 1.023 Urine Protein Negative Urine Glucose (UA) Normal Urine Ketones Negative Urine Blood 1+ H Urine Nitrate Negative Urine Bilirubin Negative Urine Urobilinogen Normal Ur Leukocyte Esterase Neg Urine WBC (Auto) 2 Urine RBC (Auto) 10 H Ur Squamous Epith Cells 8 H Uric Acid Crystals Occ H Urine Bacteria Rare Ur Random Creatinine 58.6 U Random Total Protein 18.0 H Ur Random Sodium 118 Urine Microalbumin 36.8 H 07/26/17 07/26/17 07/26/17 06:13 06:15 06:15 WBC 4.7 L RBC 2.99 L Hgb 10.2 L Hct 30.4 L MCV 101.8 H MCH 34.3 H MCHC 33.7 RDW 16.2 H Plt Count 86 L MPV 10.3 Neut % (Auto) 55.1 Lymph % (Auto) 32.6 Rogers % (Auto) 11.3 H Eos % (Auto) 0.6 Baso % (Auto) 0.4 Neut # (Auto) 2.6 Lymph # (Auto) 1.5 Rogers # (Auto) 0.5 Eos # (Auto) 0.0 Baso # (Auto) 0.0 PT 16.6 H INR 1.5 APTT 31 Sodium 157 H Potassium 3.8 Chloride 119 H Carbon Dioxide 25 Anion Gap 17 BUN 77 H Creatinine 1.5 H Est GFR ( Amer) 40 Est GFR (Non-Af Amer) 33 Random Glucose 86 Calcium 9.0 Phosphorus 3.0 Magnesium 2.2 Iron TIBC % Saturation Ferritin 189.0 Total Bilirubin 1.3 AST 30 ALT 27 Alkaline Phosphatase 65 Troponin I 0.2270 H* Total Protein 6.9 Albumin 3.4 L Globulin 3.5 Albumin/Globulin Ratio 1.0 25-OH Vitamin D Total Urine Color Urine Clarity Urine pH Ur Specific [place] Urine Protein Urine Glucose (UA) Urine Ketones Urine Blood Urine Nitrate Urine Bilirubin Urine Urobilinogen Ur Leukocyte Esterase Urine WBC (Auto) Urine RBC (Auto) Ur Squamous Epith Cells Uric Acid Crystals Urine Bacteria Ur Random Creatinine U Random Total Protein Ur Random Sodium Urine Microalbumin 07/26/17 06:15 WBC RBC Hgb Hct MCV MCH MCHC RDW Plt Count MPV Neut % (Auto) Lymph % (Auto) Rogers % (Auto) Eos % (Auto) Baso % (Auto) Neut # (Auto) Lymph # (Auto) Rogers # (Auto) Eos # (Auto) Baso # (Auto) PT INR APTT Sodium Potassium Chloride Carbon Dioxide Anion Gap BUN Creatinine Est GFR ( Amer) Est GFR (Non-Af Amer) Random Glucose Calcium Phosphorus Magnesium Iron 55 TIBC 313 % Saturation 18 L Ferritin Total Bilirubin AST ALT Alkaline Phosphatase Troponin I Total Protein Albumin Globulin Albumin/Globulin Ratio 25-OH Vitamin D Total 23.5 L Urine Color Urine Clarity Urine pH Ur Specific [place] Urine Protein Urine Glucose (UA) Urine Ketones Urine Blood Urine Nitrate Urine Bilirubin Urine Urobilinogen Ur Leukocyte Esterase Urine WBC (Auto) Urine RBC (Auto) Ur Squamous Epith Cells Uric Acid Crystals Urine Bacteria Ur Random Creatinine U Random Total Protein Ur Random Sodium Urine Microalbumin Critical Care Progress Note - Nutrition Nutrition: Nutrition Category Date Time Status Renal Diet [DIET] Diets 07/26/17 Lunch Active Attending/Attestation - Attestation I have personally seen and examined this patient.: Yes I have fully participated in the care of the patient.: Yes I have reviewed all pertinent clinical information: Yes Notes (Text): 07/26/17 16:24 Patient seen and examined in the intensive care unit. Bilateral DVT status post IVC filter placement and on eliquis Breathing much improved and patient is off BiPAP Transfer to telemetry Continue present care
--- NOTE | 2017-07-25 12:32 | RAD ---
PROCEDURE: Intraoperative Fluoroscopy. HISTORY: DEEP VEIN THROMBOSIS FINDINGS: Fluoroscopic assistance was provided. 76.2 seconds fluoroscopy time. Radiation dose = [id number] mGy. Please refer to the operative report from MAHI Sharp.
--- NOTE | 2017-07-25 13:23 | CARD ---
APPROVED REPORT EXAM: LIMITED Two-dimensional and M-mode echocardiogram with Doppler and color Doppler. Other Information Quality : LimitedRhythm : INDICATION Dyspnea RISK FACTORS Hypertension 2D DIMENSIONS IVSd1.5 (0.7-1.1cm)LVDd2.8 (3.9-5.9cm) PWd1.2 (0.7-1.1cm)LVDs1.6 (2.5-4.0cm) FS (%) 43.2 %LVEF (%)76.1 (>50%) M-Mode DIMENSIONS Left Atrium (MM)2.64 (2.5-4.0cm)Aortic Root3.03 (2.2-3.7cm) Aortic Cusp Exc.1.74 (1.5-2.0cm) Mitral Valve E/A ratio0.0 TDI E/Lateral E'0.0E/Medial E'0.0 Tricuspid Valve TR Peak [id number] Peak [id number] LEFT VENTRICLE The left ventricle is normal size. There is mild to moderate concentric left ventricular hypertrophy. The left ventricular function is normal. The left ventricular ejection fraction is within the normal range. There is normal LV segmental wall motion. No left ventricle thrombus noted on this study. There is no ventricular septal defect visualized. There is no left ventricular aneurysm. There is no mass noted in the left ventricle. RIGHT VENTRICLE The right ventricle is normal size. There is normal right ventricular wall thickness. ATRIA The left atrium size is normal. The right atrium size is normal. AORTIC VALVE The aortic valve is calcified and displays decreased opening. No aortic regurgitation is present. MITRAL VALVE Mitral annular calcification is mild. TRICUSPID VALVE The tricuspid valve is normal in structure. There is mild to moderate pulmonary hypertension. PULMONIC VALVE The pulmonary valve is normal in structure. There is trace . GREAT VESSELS The aortic root is normal in size. The ascending aorta is normal in size. The pulmonary artery is normal. The IVC is normal in size and collapses >50% with inspiration. PERICARDIAL EFFUSION There is no pericardial effusion. <Conclusion> There is mild to moderate concentric left ventricular hypertrophy. The aortic valve is calcified and displays decreased opening. There is mild to moderate pulmonary hypertension. lvef is 70%. limited study.
--- NOTE | 2017-07-25 13:24 | PN ---
DATE: 07/24/2017 SUBJECTIVE: The patient is comfortable. No nausea, vomiting. or diarrhea. No hematuria or hematochezia. No swelling of the legs. No chest pain or palpitation. Sometimes getting confused. Having a VentiMask. PHYSICAL EXAMINATION VITAL SIGNS: Temperature 97.4, pulse 94, respiratory rate is 15, blood pressure 150/84, pulse oximetry 90. HEENT: Head: Normocephalic, atraumatic. Eyes: PERRLA. Extraocular muscles intact. Conjunctivae clear. Nose patent. Mucous membranes moist. NECK: Supple. No carotid bruits, JVD, or thyromegaly. CHEST: Bilaterally symmetrical. HEART: S1 and S2 positive. LUNGS: Clear to auscultation. ABDOMEN: Soft. Bowel sounds positive. No organomegaly. EXTREMITIES: No edema, no cyanosis. NEUROLOGICAL: The patient is awake and alert, but getting confused sometimes. MEDICATIONS: Tylenol, DuoNeb, Eliquis, aspirin, Colace, Lasix on hold, Protonix, MiraLax, Crestor, vitamin B1. LABORATORY DATA: White blood cells 5.6, hemoglobin 10.3, hematocrit 30.2, and platelets 79. Sodium 151, potassium 4.3, BUN 109, creatinine 2.8. ASSESSMENT AND PLAN: Ms. Angela Mazariegos is an 87-year-old lady with anemia, thrombocytopenia, hypernatremia, renal insufficiency acute on chronic with hyperchloremia, acute renal insufficiency, elevated BUN and creatinine. Hold Lasix for now. Echo done, pending. Congestive heart failure, diastolic versus systolic. Instructional Technology Coach is on the case. Fluid restriction with gastrointestinal and deep venous thrombosis prophylaxis. Chest x-ray done and reviewed by me. CAT scan of the head is done. Gastrointestinal and deep venous thrombosis prophylaxis. Discussion with Dr. Parag Long, he is the french tutor on the case, and with the deep fryer assembler. We will follow up. Desirae Murillo MD
--- NOTE | 2017-07-25 13:30 | RAD ---
HISTORY: PICC placement COMPARISON: Portable chest 07/25/2017 6:40 a.m.. FINDINGS: LUNGS: No active pulmonary disease. PLEURA: No significant pleural effusion identified, no pneumothorax apparent. CARDIOVASCULAR: Cardiomegaly reiterated. Borderline pulmonary venous congestion is now in question. Right abstract PICC catheter inserted with tip turning at the distal superior vena cava. OSSEOUS STRUCTURES: No significant abnormalities. VISUALIZED UPPER ABDOMEN: IVC filter again identified. OTHER FINDINGS: None. IMPRESSION: Right PICC insertion as discussed above. No pneumothorax. Cardiomegaly and pulmonary vascular congestion in question. Clinically correlate further.
--- NOTE | 2017-07-25 14:12 | CP.PCM.CON ---
History of Present Illness - History of Present Illness History of Present Illness: Nephrology Consultation Note: Assessment: Stable Acute Kidney Injury (N17.9) ? etiology. possible ATN as pt with impaired perfusion at initial presentation (evident by lactic acidosis), pre-renal state. also r/o renal infarction due to vasculature thrombosis (as pt likely hypercoagulable due to her bladder malignancy hx) metabolic acidosis and Hyperkalemia Hypernatremia, Lactic acidosis, b/l DVT, COPD with mild-moderate pulm HTN, diastolic CHF, Dementia Hypertensive Chronic Kidney Disease (I12.9) Chronic Kidney Disease (N18.3) Stage 3 with ? mg proteinuria (R80.9) likely due to HTN/age related decline in renal function Anemia (D64.9), Hyperphosphatemia (E83.39), HTN (I12.9) Plan No acute need for renal replacement therapy at this time. Hypertension control with meds as ordered. Patient not on ACEI/ARB due to DEAN Monitor Input/Output, daily weights and renal function with basic metabolic panel Switch IV fluid to half normal saline at 75 mL per hour, I agree to hold the Lasix at this time started phos binders consider iron supplements and MVI as well added sodium bicarb 650 mg bid Check urine analysis, spot protein/creatinine and albumin/creatinine ratio, renal sonogram with doppler. d/w RN about Bladder scan Check for 25-OH vitamin D, iPTH, iron studies, SPEP/LAMINE Dose meds/antibiotics for reduced GFR. Avoid fleets enema/magnesium based laxatives. Avoid nephrotoxins/NSAIDs/ iodinated contrast (unless needed emergently) Glycemic control Further work up/management as per primary team Thanks for allowing me to participate in care of your patient. Will follow patient with you. Please call if any Qs Dr Srinivas Rowley Office: [phone] Chief Complaint; None at this time Reason for consultation is acute kidney injury HPI: Pt is a 87-year-old female with history of dementia osteoarthritis Ckd stage III baseline grade 1.1-1.3 with GFR 55 Chronic obstructive pulmonary disease with pulmonary hypertension also bladder tumor patient had refused intervention, She was recently hospitalized for fall and humerus fracture and rehabilitation, came to hospital with shortness of breath. He still elevated BNP and concern for congestive heart failure and she was diuresed, but also with acute kidney since presentation and hence renal consulted Patient also with bilateral extensive deep DVT she had IVC filter placed and also on and accommodation. Denies OTC/herbal meds or NSAIDs No recent iodinated contrast exposure. No obvious episodes of low BP. ROS: Cardiovascular: No chest pain. Pulmonary: No shortness of breath Gastrointestinal: denies abdominal pain No nausea. No vomiting. Genitourinary: No pain while urinating. Denies blood in urine. All other negative except as mentioned in HPI Physical Examination: General Appearance: Comfortable, in no acute respiratory distress, co-operative . Vitals reviewed and noted as below Head; Atraumatic, normocephalic ENT: no ulcers no thrush. Tongue is midline. Oropharynx: no rash or ulcers. EYES: Pupils are equal, round and reactive to light accommodation. Eye muscles and extraocular movement intact. Sclera is anicteric. Neck; supple no lymphadenopathy, no thyromegaly or bruit Lungs: Normal respiratory rate/effort. Breath sounds bilateral equal and clear at present Heart: Normal rate. s1s2 normal. No rub or gallop. Extremities: no edema. No varicose veins Neurological: Patient is alert, awake and disoriented to place and time. No focal deficit. Strength bilateral appropriate and equal. she has dementia Skin: Warm and dry. Normal turgor. No rash. Palpitation: Normal elasticity for age Abdomen: Abdomen is soft. Bowel sounds +. There is no abdominal tenderness, no guarding/rigidity no organomegaly Psych: normal insight and normal affect/mood MSK: no joint tenderness or swelling. Digits and nails normal, no deformity : kidney not palpable Able to percuss bladder just below the umbilicus Labs/imaging reviewed. Past medical history, past surgical history, family history, social history, allergy reviewed and noted as below Family hx: no hx of CKD. Rest non-contributory CT abdomen last Admission 2 weeks ago, imaging for kidney unremarkable except mild fullness UA 1+ protein has few RBCs and WBCs Lipase at 4.2 and came initially VQ scan negative Venous Doppler of the leg bilateral DVT Chest x-ray showed mild congestion Past Patient History - Past Medical History & Family History Past Medical History?: Yes - Past Social History Smoking Status: Former Smoker - CARDIAC Hx Hypercholesterolemia: Yes Hx Hypertension: Yes - PULMONARY Hx Emphysema: Yes Hx Pneumonia: Yes - NEUROLOGICAL Hx Dementia: Yes - HEENT Hx HEENT Problems: No - RENAL Hx Chronic Kidney Disease: Yes (BLADDER TUMOR/MASS) - ENDOCRINE/METABOLIC Hx Endocrine Disorders: No - HEMATOLOGICAL/ONCOLOGICAL Hx Cancer: Yes - INTEGUMENTARY Hx Dermatological Problems: Yes Hx Psoriasis: Yes (EXSTENSIVE SPECIALLY TO WHOLE BACK AND BUTTOCKS.FLUSHED SKIN. ) - MUSCULOSKELETAL/RHEUMATOLOGICAL Hx Arthritis: Yes - GENITOURINARY/GYNECOLOGICAL Hx Genitourinary Disorders: Yes Hx Bladder Cancer: Yes - PSYCHIATRIC Hx Substance Use: No - SURGICAL HISTORY Hx Surgeries: Yes (TONSILLECTOMY,BLADDER SX- TURBT,TONSILLECTOMY) - ANESTHESIA Hx Anesthesia Reactions: Yes (diff waking up) Hx Malignant Hyperthermia: No Meds Allergies/Adverse Reactions: Allergies Allergy/AdvReac Type Severity Reaction Status Date / Time No Known Allergies Allergy Verified 07/22/17 21:12 - Medications Medications: Current Medications Acetaminophen (Tylenol 325mg Tab) 650 mg PO Q4H PRN PRN Reason: Pain, Mild (1-3) Albuterol/Ipratropium (Duoneb 3 Mg/0.5 Mg (3 Ml) Ud) 3 ml INH RQ8 [facility] Last Admin: 07/25/17 07:21 Dose: 3 ml Apixaban (Eliquis) 5 mg PO BID [facility] Last Admin: 07/25/17 09:01 Dose: 5 mg Aspirin (Aspirin) 325 mg PO DAILY [facility] Last Admin: 07/25/17 09:02 Dose: 325 mg Docusate Sodium (Colace) 100 mg PO BID [facility] Last Admin: 07/25/17 09:01 Dose: 100 mg Cefepime HCl 1 gm/ Dextrose 50 mls @ 100 mls/hr IVPB Q24H [facility] PRN Reason: Protocol Last Admin: 07/24/17 11:40 Dose: 100 mls/hr Sodium Chloride (Sodium Chloride 0.45%) 1,000 mls @ 75 mls/hr IV .[id number] [facility] Pantoprazole Sodium (Protonix Inj) 40 mg IVP BID [facility] Last Admin: 07/25/17 09:01 Dose: 40 mg Polyethylene Glycol (Miralax) 17 gm PO DAILY [facility] Last Admin: 07/25/17 09:02 Dose: 17 gm Rosuvastatin Calcium (Crestor) 5 mg PO HS [facility] Last Admin: 07/24/17 21:05 Dose: 5 mg Sevelamer Carbonate (Renvela) 800 mg PO TIDCC [facility] Thiamine HCl (Vitamin B1 Tab) 100 mg PO DAILY [facility] Last Admin: 07/25/17 09:01 Dose: 100 mg Results - Vital Signs Recent Vital Signs: Last Vital Signs Temp 97.4 F L 07/25/17 08:00 Pulse 89 07/25/17 08:00 Resp 12 07/25/17 08:00 BP 158/78 H 07/25/17 09:01 Pulse Ox 98 07/25/17 08:00 - Labs Result Diagrams: 07/24/17 06:14 07/24/17 06:14
[2017-07-25 15:45] LABS: BASO % 0.3 % (0.0-2.0); EOS % 0.3 % (0.0-4.0); HEMOGLOBIN 10.3 g/dL (11.0-16.0); LYMPH # 1.4 K/uL (1.0-4.3); LYMPH % 30.9 % (20.0-40.0); MEAN CELL VOLUME 101.4 fL (81.0-99.0); MEAN CORPUSCULAR HEMOGLOBIN 33.8 pg (27.0-31.0); MEAN CORPUSCULAR HGB CONC 33.4 g/dL (33.0-37.0); MEAN PLATELET VOLUME 9.8 fL (7.2-11.7); MONO # 0.5 K/uL (0.0-0.8); MONO % 11.4 % (0.0-10.0); NEUT # 2.5 K/uL (1.8-7.0); NEUT % 57.1 % (50.0-75.0); NRBC % 0.8 % (0.0-2.0); RBC 3.05 Mil/uL (3.80-5.20); RED CELL DISTRIBUTION WIDTH 16.4 % (11.5-14.5); WHITE BLOOD COUNT 4.4 K/uL (4.8-10.8)
[2017-07-25 16:01] LABS: INR 1.6; PROTHROMBIN TIME 17.5 SECONDS (9.7-12.2)
[2017-07-25 16:02] LABS: ALBUMIN 3.5 g/dL (3.5-5.0); CALCIUM 8.6 mg/dl (8.6-10.4)
[2017-07-25] MEDS: Vitamins A & D Oint UD Foilpak TOP SCH (17:42)
[2017-07-25] MEDS ORDERED: Potassium Chloride 20 mEq/15 ml LIQ UD PO STA (18:20)
[2017-07-25 23:39] LABS: SQUAMOUS EPITHIAL 8 /hpf (0-5); URINE BACTERIA RARE (<OCC); URINE BILIRUBIN NEGATIVE (NEGATIVE); URINE BLOOD 1+ (NEGATIVE); URINE CLARITY Hazy (Clear); URINE COLOR Yellow (YELLOW); URINE GLUCOSE (UA) NORMAL (Normal); URINE LEUKOCYTE ESTERASE NEG Leu/uL (Negative); URINE PROTEIN NEGATIVE (NEGATIVE); URINE URIC ACID CRYSTALS OCC /hpf (<OCC); URINE UROBILINOGEN NORMAL mg/dL (0.2-1.0)
[2017-07-25 23:57] LABS: CREATININE, RANDOM URINE 58.6 mg/dL
[2017-07-26] MEDS: Sodium Chloride 0.45% 1,000 ML IV SCH ×2 (00:26→06:20)
[2017-07-26] MEDS: Vitamins A & D Oint UD Foilpak TOP SCH ×3 (05:15→18:58)
[2017-07-26 06:22] LABS: BASO % 0.4 % (0.0-2.0); EOS % 0.6 % (0.0-4.0); HEMOGLOBIN 10.2 g/dL (11.0-16.0); LYMPH # 1.5 K/uL (1.0-4.3); LYMPH % 32.6 % (20.0-40.0); MEAN CELL VOLUME 101.8 fL (81.0-99.0); MEAN CORPUSCULAR HEMOGLOBIN 34.3 pg (27.0-31.0); MEAN CORPUSCULAR HGB CONC 33.7 g/dL (33.0-37.0); MEAN PLATELET VOLUME 10.3 fL (7.2-11.7); MONO # 0.5 K/uL (0.0-0.8); MONO % 11.3 % (0.0-10.0); NEUT # 2.6 K/uL (1.8-7.0); NEUT % 55.1 % (50.0-75.0); NRBC % 0.9 % (0.0-2.0); RBC 2.99 Mil/uL (3.80-5.20); RED CELL DISTRIBUTION WIDTH 16.2 % (11.5-14.5); WHITE BLOOD COUNT 4.7 K/uL (4.8-10.8)
[2017-07-26 06:30] LABS: INR 1.5; PROTHROMBIN TIME 16.6 SECONDS (9.7-12.2)
[2017-07-26 06:45] LABS: ALBUMIN 3.4 g/dL (3.5-5.0)
[2017-07-26] MEDS: Albuterol-Ipratrop 3 mg / 0.5 (3 ml) UD INH SCH ×2 (07:10→15:50)
--- NOTE | 2017-07-26 09:28 | RAD ---
HISTORY: SOB COMPARISON: Chest radiograph dated 07/25/2017. FINDINGS: LUNGS: No active pulmonary disease. PLEURA: No significant pleural effusion identified, no pneumothorax apparent. CARDIOVASCULAR: Sclerotic aortic calcifications. Cardiomediastinal silhouette stably enlarged. OSSEOUS STRUCTURES: Unchanged. VISUALIZED UPPER ABDOMEN: Normal. OTHER FINDINGS: Right upper extremity PICC, unchanged. IMPRESSION: No active disease.
[2017-07-26] MEDS ORDERED: Ergocalciferol 50,000 Intl Units Cap PO SCH (09:45)
[2017-07-26] MEDS: Multivitamin Vitamin B Complex (Nephro-Vite) Tab PO SCH (10:16)
[2017-07-26] MEDS: POLYETHYLENE GLYCOL 3350 17 GM/Dose PACKET PO SCH ×2 (10:17→11:39)
[2017-07-26 11:30] LABS: TROPONIN I 0.227 ng/mL (0.00-0.120)
--- NOTE | 2017-07-26 13:38 | VASCLAB ---
PROCEDURE: Ultrasonography renal arterial evaluation HISTORY: DEAN, RULE OUT RENAL VEIN THROMBOSIS COMPARISON: None available. TECHNIQUE: Real-time ultrasonography evaluation of the renal arteries were performed. Comparison is made to the aorta. Report prepared by LUIS ARMANDO Nayak, RVT FINDINGS: AORTA: Patent. Peak systolic velocity 102 centimeters/second. Elevated peak systolic velocity 614.5 centimeters /second of the proximal superior mesenteric artery. RIGHT RENAL ARTERY: Renal artery to aorta ratio: 1.5 * Proximal segment: Patent. Peak systolic velocity 143 centimeters/second * Mid segment: Patent. Peak systolic velocity 156 centimeters/second * Distal segment: Patent. Peak systolic velocity 146 centimeters/second Other findings: Right Kidney measures approximately 10.79 centimeters. LEFT RENAL ARTERY: Patient refused this portion of the examination. IMPRESSION: No definite hemodynamically significant stenosis involving the right renal artery as visualized. Questionable hydronephrosis versus right renal cysts. Dedicated renal ultrasound can be obtained for further evaluation. PATIENT REFUSED THE LEFT RENAL STUDY. Incidental note is made of elevated peak systolic velocity of the proximal superior mesenteric artery suggesting severe proximal stenosis.
--- NOTE | 2017-07-26 16:26 | CP.PCM.PN ---
Subjective - Date & Time of Evaluation Date of Evaluation: 07/26/17 Time of Evaluation: 16:20 - Subjective Subjective: Nephrology Consultation Note: Assessment: Stable Acute Kidney Injury (N17.9) ? etiology. 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 Hypertension control with meds as ordered. Patient not on ACEI/ARB due to DEAN Monitor Input/Output, daily weights and renal function with basic metabolic panel continue with IV fluid half normal saline at 75 mL per hour (preferred D5W but not available), I agree to hold the Lasix at this time d/c phos binders and d/c bicarb since DEAN resolving continue with iron supplements and MVI as well, added weekly Vit D sent iPTH, SPEP/LAMINE renal doppler neg, incidental SMA stenosis possibly, may consider further work up if pt symptomatic, but will defer to primary team Dose meds/antibiotics for reduced GFR. Avoid fleets enema/magnesium based laxatives. Avoid nephrotoxins/NSAIDs/ iodinated contrast (unless needed emergently) Glycemic control Further work up/management as per primary team Thanks for allowing me to participate in care of your patient. Will follow patient with you. Please call if any Qs. d/w team and family Dr Srinivas Rowley Office: [phone] Chief Complaint; None at this time Reason for consultation is acute kidney injury HPI: Pt is a 87-year-old female with history of dementia osteoarthritis Ckd stage III baseline grade 1.1-1.3 with GFR 55 Chronic obstructive pulmonary disease with pulmonary hypertension also bladder tumor patient had refused intervention, She was recently hospitalized for fall and humerus fracture and d/ c to rehab, came to hospital with shortness of breath ,elevated BNP and concern for congestive heart failure, hence she was diuresed, but also with DEAN since presentation and hence renal consulted Patient also with bilateral extensive deep DVT she had IVC filter placed and also on systemic a/c Denies OTC/herbal meds or NSAIDs No recent iodinated contrast exposure. No obvious episodes of low BP. ROS: Cardiovascular: No chest pain. Pulmonary: No shortness of breath now Gastrointestinal: denies abdominal pain No nausea. No vomiting. Genitourinary: No pain while urinating. Denies blood in urine. All other negative except as mentioned in HPI but limited due to her dementia Physical Examination: General Appearance: Comfortable, in no acute respiratory distress, co-operative . Vitals reviewed and noted as below Head; Atraumatic, normocephalic ENT: no ulcers no thrush. Tongue is midline. Oropharynx: no rash or ulcers. EYES: Pupils are equal, round and reactive to light accommodation. Eye muscles and extraocular movement intact. Sclera is anicteric. Neck; supple no lymphadenopathy, no thyromegaly or bruit Lungs: Normal respiratory rate/effort. Breath sounds bilateral equal and clear at present Heart: Normal rate. s1s2 normal. No rub or gallop. Extremities: no edema. No varicose veins Neurological: Patient is alert, awake and disoriented to place and time. No focal deficit. Strength bilateral appropriate and equal. she has dementia Skin: Warm and dry. Normal turgor. No rash. Palpitation: Normal elasticity for age Abdomen: Abdomen is soft. Bowel sounds +. There is no abdominal tenderness, no guarding/rigidity no organomegaly Psych: normal insight and normal affect/mood MSK: no joint tenderness or swelling. Digits and nails normal, no deformity : kidney not palpable Labs/imaging reviewed. Past medical history, past surgical history, family history, social history, allergy reviewed and noted as below Family hx: no hx of CKD. Rest non-contributory CT abdomen last Admission 2 weeks ago, imaging for kidney unremarkable except mild fullness UA 1+ protein has few RBCs and WBCs Lipase at 4.2 and came initially VQ scan negative Venous Doppler of the leg bilateral DVT Chest x-ray showed mild congestion Objective - Vital Signs/Intake and Output Vital Signs (last 24 hours): Temp Pulse Resp BP Pulse Ox 98.3 F 93 H 23 184/79 H 93 L 07/26/17 12:00 07/26/17 13:19 07/26/17 13:19 07/26/17 13:19 07/26/17 13:19 Intake and Output: 07/26/17 07/26/17 06:59 18:59 Intake Total 1050 300 Output Total 309 Balance 741 300 - Medications Medications: Current Medications Acetaminophen (Tylenol 325mg Tab) 650 mg PO Q4H PRN PRN Reason: Pain, Mild (1-3) Albuterol/Ipratropium (Duoneb 3 Mg/0.5 Mg (3 Ml) Ud) 3 ml INH RQ8 [facility] Last Admin: 07/26/17 15:50 Dose: 3 ml Apixaban (Eliquis) 5 mg PO BID [facility] Last Admin: 07/26/17 10:16 Dose: 5 mg Aspirin (Aspirin) 325 mg PO DAILY [facility] Last Admin: 07/26/17 10:16 Dose: 325 mg Docusate Sodium (Colace) 100 mg PO BID [facility] Last Admin: 07/26/17 10:17 Dose: 100 mg Ergocalciferol (Drisdol 50,000 Intl Units Cap) 1 cap PO Q7D [facility] Last Admin: 07/26/17 13:15 Dose: 1 cap Ferrous Gluconate (Fergon) 324 mg PO TID [facility] Last Admin: 07/26/17 13:15 Dose: 324 mg Cefepime HCl 1 gm/ Dextrose 50 mls @ 100 mls/hr IVPB Q24H [facility] PRN Reason: Protocol Last Admin: 07/26/17 10:18 Dose: 100 mls/hr Dextrose (Dextrose 5% In Water 1000 Ml) 1,000 mls @ 75 mls/hr IV .[id number] [facility] Pantoprazole Sodium (Protonix Inj) 40 mg IVP BID [facility] Last Admin: 07/26/17 10:17 Dose: 40 mg Polyethylene Glycol (Miralax) 17 gm PO DAILY [facility] Last Admin: 07/26/17 11:39 Dose: Not Given Rosuvastatin Calcium (Crestor) 5 mg PO HS [facility] Last Admin: 07/25/17 22:14 Dose: 5 mg Thiamine HCl (Vitamin B1 Tab) 100 mg PO DAILY [facility] Last Admin: 07/26/17 10:17 Dose: 100 mg Vitamin A (Vitamin A & D Oint Ud Foilpak) 1 ea TOP BID [facility] Last Admin: 07/26/17 10:17 Dose: 1 ea Vitamin B Complex/Vit C/Folic Acid (Nephro-Paul) 1 tab PO 0800 [facility] Last Admin: 07/26/17 10:16 Dose: 1 tab - Labs Labs: 07/26/17 06:13 07/26/17 06:15 PT 16.6 SECONDS (9.7-12.2) H 07/26/17 06:15 INR 1.5 07/26/17 06:15 APTT 31 SECONDS (21-34) 07/26/17 06:15
--- NOTE | 2017-07-26 18:21 | CP.PCM.PN ---
Subjective - Date & Time of Evaluation Date of Evaluation: 07/26/17 Time of Evaluation: 18:19 - Subjective Subjective: Shortness of breath have improved. Objective - Vital Signs/Intake and Output Vital Signs (last 24 hours): Temp Pulse Resp BP Pulse Ox 97.7 F 95 H 17 174/101 H 92 L 07/26/17 16:00 07/26/17 16:01 07/26/17 16:01 07/26/17 16:01 07/26/17 14:02 Intake and Output: 07/26/17 07/26/17 06:59 18:59 Intake Total 1050 525 Output Total 309 Balance 741 525 - Medications Medications: Current Medications Acetaminophen (Tylenol 325mg Tab) 650 mg PO Q4H PRN PRN Reason: Pain, Mild (1-3) Albuterol/Ipratropium (Duoneb 3 Mg/0.5 Mg (3 Ml) Ud) 3 ml INH RQ8 [facility] Last Admin: 07/26/17 15:50 Dose: 3 ml Amlodipine Besylate (Norvasc) 5 mg PO DAILY [facility] Last Admin: 07/26/17 16:53 Dose: 5 mg Apixaban (Eliquis) 5 mg PO BID [facility] Last Admin: 07/26/17 17:05 Dose: 5 mg Aspirin (Aspirin) 325 mg PO DAILY [facility] Last Admin: 07/26/17 10:16 Dose: 325 mg Docusate Sodium (Colace) 100 mg PO BID [facility] Last Admin: 07/26/17 10:17 Dose: 100 mg Ergocalciferol (Drisdol 50,000 Intl Units Cap) 1 cap PO Q7D [facility] Last Admin: 07/26/17 13:15 Dose: 1 cap Ferrous Gluconate (Fergon) 324 mg PO TID [facility] Last Admin: 07/26/17 17:49 Dose: Not Given Hydralazine HCl (Apresoline) 25 mg PO Q4 PRN PRN Reason: Other Cefepime HCl 1 gm/ Dextrose 50 mls @ 100 mls/hr IVPB Q24H [facility] PRN Reason: Protocol Last Admin: 07/26/17 10:18 Dose: 100 mls/hr Dextrose (Dextrose 5% In Water 1000 Ml) 1,000 mls @ 75 mls/hr IV .[id number] [facility] Last Admin: 07/26/17 16:34 Dose: Not Given Pantoprazole Sodium (Protonix Inj) 40 mg IVP BID [facility] Last Admin: 07/26/17 17:05 Dose: 40 mg Polyethylene Glycol (Miralax) 17 gm PO DAILY [facility] Last Admin: 07/26/17 11:39 Dose: Not Given Rosuvastatin Calcium (Crestor) 5 mg PO HS [facility] Last Admin: 07/25/17 22:14 Dose: 5 mg Thiamine HCl (Vitamin B1 Tab) 100 mg PO DAILY [facility] Last Admin: 07/26/17 10:17 Dose: 100 mg Vitamin A (Vitamin A & D Oint Ud Foilpak) 1 ea TOP BID [facility] Last Admin: 07/26/17 10:17 Dose: 1 ea Vitamin B Complex/Vit C/Folic Acid (Nephro-Paul) 1 tab PO 0800 [facility] Last Admin: 07/26/17 10:16 Dose: 1 tab - Labs Labs: 07/26/17 06:13 07/26/17 06:15 PT 16.6 SECONDS (9.7-12.2) H 07/26/17 06:15 INR 1.5 07/26/17 06:15 APTT 31 SECONDS (21-34) 07/26/17 06:15 - Head Exam Head Exam: NORMOCEPHALIC - Neck Exam Neck Exam: Normal Inspection - Respiratory Exam Respiratory Exam: NORMAL BREATHING PATTERN - Cardiovascular Exam Cardiovascular Exam: REGULAR RHYTHM - Extremities Exam Extremities Exam: Normal Inspection - Neurological Exam Neurological Exam: Oriented x3 Assessment and Plan (1) Acute renal failure Assessment & Plan: Improving. Hold diuretics and IV fluids. Status: Acute (2) Congestive heart failure Assessment & Plan: Acute diastolic heart failure. Continue current care. Patient no sure about sub acute. Maintain electrolyte balance. Status: Acute (3) HTN (hypertension) Status: Chronic
[2017-07-27] MEDS: Albuterol-Ipratrop 3 mg / 0.5 (3 ml) UD INH SCH ×3 (00:24→15:59)
[2017-07-27 06:37] LABS: BASO % 0.5 % (0.0-2.0); EOS # 0.1 K/uL (0.0-0.7); EOS % 2.9 % (0.0-4.0); HEMOGLOBIN 9.9 g/dL (11.0-16.0); LYMPH # 1.4 K/uL (1.0-4.3); LYMPH % 36.7 % (20.0-40.0); MEAN CELL VOLUME 101.9 fL (81.0-99.0); MEAN CORPUSCULAR HEMOGLOBIN 34.4 pg (27.0-31.0); MEAN CORPUSCULAR HGB CONC 33.7 g/dL (33.0-37.0); MEAN PLATELET VOLUME 9.8 fL (7.2-11.7); MONO # 0.5 K/uL (0.0-0.8); MONO % 13.5 % (0.0-10.0); NEUT # 1.8 K/uL (1.8-7.0); NEUT % 46.4 % (50.0-75.0); NRBC % 0.5 % (0.0-2.0); RBC 2.87 Mil/uL (3.80-5.20); RED CELL DISTRIBUTION WIDTH 16.6 % (11.5-14.5); WHITE BLOOD COUNT 3.9 K/uL (4.8-10.8)
[2017-07-27 06:47] LABS: INR 1.5; PROTHROMBIN TIME 16.2 SECONDS (9.7-12.2)
[2017-07-27 07:11] LABS: ALBUMIN 3.1 g/dL (3.5-5.0); ALT/SGPT 31 U/L (9-52); AST/SGOT 31 U/L (14-36); BLOOD UREA NITROGEN 52 mg/dL (7-17); CALCIUM 8.7 mg/dl (8.6-10.4); GFR AFRICAN-AMERICAN > 60; GFR NON-AFRICAN AMERICAN 53
[2017-07-27] MEDS ORDERED: Sodium Chloride 0.45% 1,000 ML IV SCH (07:30)
--- NOTE | 2017-07-27 07:31 | PN ---
DATE: 07/25/2017 SUBJECTIVE: The patient is an 87-year-old female. The patient was seen and examined at the bedside on 07/25/2017, looking a little bit better. Cough and shortness of breath is better, tolerating 3 L on nasal cannula. No overnight events reported. No fever, no chills. No nausea, vomiting, or diarrhea. No hematuria or hematochezia. No chest pain. No headache. No dizziness. PHYSICAL EXAMINATION: VITAL SIGNS: Blood pressure 158/78, respiratory rate 18, pulse 80. The patient is afebrile. HEENT: Head: Normocephalic, atraumatic. Eyes: PERRLA. Extraocular movements intact. Conjunctivae clear. Nose patent. Mucous membranes moist. NECK: Supple. No carotid bruits. No JVD or thyromegaly. CHEST: Bilaterally symmetrical. HEART: S1 and S2 positive. LUNGS: Clear to auscultation. ABDOMEN: Soft. Bowel sounds present. No organomegaly. EXTREMITIES: No edema, no cyanosis. NEUROLOGIC: The patient is awake and alert, moving all 4 extremities. MEDICATIONS: Tylenol, Eliquis, aspirin, Colace, cefepime, NS, Protonix, MiraLAX, Crestor, Renvela, thiamine. LABORATORY DATA: Blood cultures, MRSA not detected from her nares. Blood cultures, no growth after 48 hours. ASSESSMENT AND PLAN: Ms. Angela Mazariegos is an 87-year-old lady with history of advanced dementia, arthritis, emphysema, hypertension, hypercholesterolemia, renal insufficiency, is admitted for evaluation and treatment of shortness of breath, was on BiPAP, now tolerating 3 L via nasal cannula. She has exacerbation of chronic obstructive pulmonary disease/asthma. CAT scan of the head done on admission is negative. Echo pending. Preliminary report shows normal ejection fraction of 71%. Continue Eliquis, aspirin. Dyspnea improved. Continue current treatment. Acute kidney injury on chronic kidney disease, hypernatremia, prerenal etiology. Discontinue Lasix. Nephrology is on the case. The patient is getting antibiotics , hypoperfusion. No fever, no leukocytosis. Continue cefepime. Gastrointestinal and deep venous thrombosis prophylaxis. Repeat labs. We will follow. Desirae Murillo MD [facility] # [id number] MTDChidi
--- NOTE | 2017-07-27 07:34 | PN ---
DATE: 07/27/2017 SUBJECTIVE: The patient is an 87-year-old female. The patient is seen and examined at the bedside, looking comfortable. Shortness of breath is better. Coughing is better. No nausea or vomiting. No fever or chills. No hematuria or hematochezia. PHYSICAL EXAMINATION: VITAL SIGNS: Temperature 97.7, pulse 95, respiratory rate 17, blood pressure 175/101, pulse oxymetry 92. HEENT: Head normocephalic, atraumatic. Eyes, PERRLA. Extraocular muscles intact. Conjunctivae clear. Nose patent. Mucous membranes moist. NECK: Supple. No carotid bruits. No JVD or thyromegaly. CHEST: Bilaterally symmetrical. HEART: S1, S2 positive. LUNGS: Clear to auscultation. ABDOMEN: Soft. Bowel sounds present. No organomegaly. EXTREMITIES: No edema. No cyanosis. NEUROLOGIC: The patient is awake, alert, moving all 4 extremities. No focal deficits. MEDICATIONS: Tylenol, DuoNeb, Norvasc, Eliquis, aspirin, Colace, vitamin D, ferrous sulfate, hydralazine, Protonix, Miralax, Crestor, vitamin D1. LABORATORY DATA: We do not have recent labs today, but I reviewed the old labs. ASSESSMENT AND PLAN: The patient is an 87-year-old lady with acute renal insufficiency, improving. Holding diuretics and giving IV fluids. Congestive heart failure, acute diastolic heart failure. Continue the current treatment. The patient is not sure about subacute rehab but the patient came from subacute rehab and will go back there. Hypertension. The patient is seen by the boring and filling machine operator Dr. Watts [facility] and also seen by Srinivas Rowley MD, section [employer] property manager. Repeat labs. We will follow up. Desirae Murillo MD MTDD
[2017-07-27] MEDS: Multivitamin Vitamin B Complex (Nephro-Vite) Tab PO SCH (09:08)
[2017-07-27] MEDS: Vitamins A & D Oint UD Foilpak TOP SCH ×2 (09:18→18:16)
[2017-07-27] MEDS: POLYETHYLENE GLYCOL 3350 17 GM/Dose PACKET PO SCH (09:18)
--- NOTE | 2017-07-27 11:58 | CP.PCM.PN ---
Subjective - Date & Time of Evaluation Date of Evaluation: 07/27/17 Time of Evaluation: 11:56 - Subjective Subjective: Feeling better, sitting in chair. Breathing have improved. Objective - Vital Signs/Intake and Output Vital Signs (last 24 hours): Temp Pulse Resp BP Pulse Ox 98.3 F 81 16 135/58 L 81 L 07/27/17 08:00 07/27/17 11:00 07/27/17 11:00 07/27/17 09:02 07/27/17 09:02 Intake and Output: 07/27/17 07/27/17 06:59 18:59 Intake Total 900 225 Output Total 1 Balance 900 224 - Medications Medications: Current Medications Acetaminophen (Tylenol 325mg Tab) 650 mg PO Q4H PRN PRN Reason: Pain, Mild (1-3) Albuterol/Ipratropium (Duoneb 3 Mg/0.5 Mg (3 Ml) Ud) 3 ml INH RQ8 [facility] Last Admin: 07/27/17 07:19 Dose: 3 ml Amlodipine Besylate (Norvasc) 10 mg PO DAILY [facility] Apixaban (Eliquis) 5 mg PO BID [facility] Last Admin: 07/27/17 09:08 Dose: 5 mg Aspirin (Aspirin) 325 mg PO DAILY [facility] Last Admin: 07/27/17 09:08 Dose: 325 mg Docusate Sodium (Colace) 100 mg PO BID [facility] Last Admin: 07/27/17 09:18 Dose: Not Given Ergocalciferol (Drisdol 50,000 Intl Units Cap) 1 cap PO Q7D [facility] Last Admin: 07/26/17 13:15 Dose: 1 cap Ferrous Gluconate (Fergon) 324 mg PO TID [facility] Last Admin: 07/27/17 09:08 Dose: 324 mg Hydralazine HCl (Apresoline) 25 mg PO Q4 PRN PRN Reason: Other Cefepime HCl 1 gm/ Dextrose 50 mls @ 100 mls/hr IVPB Q24H [facility] PRN Reason: Protocol Last Admin: 07/27/17 11:27 Dose: 100 mls/hr Dextrose (Dextrose 5% In Water 1000 Ml) 1,000 mls @ 75 mls/hr IV .[id number] [facility] Last Admin: 07/26/17 22:14 Dose: Not Given Pantoprazole Sodium (Protonix Inj) 40 mg IVP BID [facility] Last Admin: 07/27/17 09:07 Dose: 40 mg Polyethylene Glycol (Miralax) 17 gm PO DAILY [facility] Last Admin: 07/27/17 09:18 Dose: Not Given Rosuvastatin Calcium (Crestor) 5 mg PO HS [facility] Last Admin: 07/26/17 21:35 Dose: Not Given Thiamine HCl (Vitamin B1 Tab) 100 mg PO DAILY [facility] Last Admin: 07/26/17 10:17 Dose: 100 mg Vitamin A (Vitamin A & D Oint Ud Foilpak) 1 ea TOP BID [facility] Last Admin: 07/27/17 09:18 Dose: Not Given Vitamin B Complex/Vit C/Folic Acid (Nephro-Paul) 1 tab PO 0800 [facility] Last Admin: 07/27/17 09:08 Dose: Not Given - Labs Labs: 07/27/17 06:29 07/27/17 06:31 PT 16.2 SECONDS (9.7-12.2) H 07/27/17 06:31 INR 1.5 07/27/17 06:31 APTT 29 SECONDS (21-34) 07/27/17 06:31 - Head Exam Head Exam: NORMOCEPHALIC - Neck Exam Neck Exam: Normal Inspection - Respiratory Exam Respiratory Exam: NORMAL BREATHING PATTERN - Cardiovascular Exam Cardiovascular Exam: REGULAR RHYTHM - Extremities Exam Extremities Exam: Normal Inspection - Neurological Exam Neurological Exam: Oriented x3 Assessment and Plan (1) Acute renal failure Assessment & Plan: Improving. Continue hydration. Status: Acute (2) Congestive heart failure Assessment & Plan: Diastolic dysfunction. control BP. Maintain electrolyte balance. Status: Acute (3) HTN (hypertension) Assessment & Plan: Continue Current regimen. Status: Chronic
--- NOTE | 2017-07-27 12:37 | CP.PCM.PN ---
Subjective - Date & Time of Evaluation Date of Evaluation: 07/27/17 Time of Evaluation: 12:35 - Subjective Subjective: Nephrology Consultation Note: Assessment: Stable Acute Kidney Injury (N17.9) ? etiology. 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 DEAN has resolved Hypertension control with meds as ordered. Patient not on ACEI/ARB due to DEAN Monitor Input/Output, daily weights and renal function with basic metabolic panel d/c IVF as normal renal function. pt to drink more water for her mild hypernatremia continue with iron supplements and MVI as well, added weekly Vit D sent iPTH, SPEP/LAMINE renal doppler neg, incidental SMA stenosis possibly, may consider further work up if pt symptomatic, but will defer to primary team Dose meds/antibiotics for improved GFR. Glycemic control Further work up/management as per primary team Thanks for allowing me to participate in care of your patient. Will follow patient with you. Please call if any Qs. d/w team and family Dr Srinivas Rowley Office: [phone] Chief Complaint; None at this time Reason for consultation is acute kidney injury HPI: Pt is a 87-year-old female with history of dementia osteoarthritis Ckd stage III baseline grade 1.1-1.3 with GFR 55 Chronic obstructive pulmonary disease with pulmonary hypertension also bladder tumor patient had refused intervention, She was recently hospitalized for fall and humerus fracture and d/ c to rehab, came to hospital with shortness of breath ,elevated BNP and concern for congestive heart failure, hence she was diuresed, but also with DEAN since presentation and hence renal consulted Patient also with bilateral extensive deep DVT she had IVC filter placed and also on systemic a/c Denies OTC/herbal meds or NSAIDs No recent iodinated contrast exposure. No obvious episodes of low BP. ROS: Cardiovascular: No chest pain. Pulmonary: No shortness of breath now Gastrointestinal: denies abdominal pain No nausea. No vomiting. Genitourinary: No pain while urinating. Denies blood in urine. All other negative except as mentioned in HPI but limited due to her dementia Physical Examination: General Appearance: Comfortable, in no acute respiratory distress, co-operative . Vitals reviewed and noted as below Head; Atraumatic, normocephalic ENT: no ulcers no thrush. Tongue is midline. Oropharynx: no rash or ulcers. EYES: Pupils are equal, round and reactive to light accommodation. Eye muscles and extraocular movement intact. Sclera is anicteric. Neck; supple no lymphadenopathy, no thyromegaly or bruit Lungs: Normal respiratory rate/effort. Breath sounds bilateral equal and clear at present Heart: Normal rate. s1s2 normal. No rub or gallop. Extremities: no edema. No varicose veins Neurological: Patient is alert, awake and disoriented to place and time. No focal deficit. Strength bilateral appropriate and equal. she has dementia Skin: Warm and dry. Normal turgor. No rash. Palpitation: Normal elasticity for age Abdomen: Abdomen is soft. Bowel sounds +. There is no abdominal tenderness, no guarding/rigidity no organomegaly Psych: normal insight and normal affect/mood MSK: no joint tenderness or swelling. Digits and nails normal, no deformity : kidney not palpable Labs/imaging reviewed. Past medical history, past surgical history, family history, social history, allergy reviewed and noted as below Family hx: no hx of CKD. Rest non-contributory CT abdomen last Admission 2 weeks ago, imaging for kidney unremarkable except mild fullness UA 1+ protein has few RBCs and WBCs Lipase at 4.2 and came initially VQ scan negative Venous Doppler of the leg bilateral DVT Chest x-ray showed mild congestion Objective - Vital Signs/Intake and Output Vital Signs (last 24 hours): Temp Pulse Resp BP Pulse Ox 97.6 F 86 17 135/58 L 87 L 07/27/17 12:00 07/27/17 12:00 07/27/17 12:00 07/27/17 09:02 07/27/17 12:00 Intake and Output: 07/27/17 07/27/17 06:59 18:59 Intake Total 900 275 Output Total 1 Balance 900 274 - Medications Medications: Current Medications Acetaminophen (Tylenol 325mg Tab) 650 mg PO Q4H PRN PRN Reason: Pain, Mild (1-3) Albuterol/Ipratropium (Duoneb 3 Mg/0.5 Mg (3 Ml) Ud) 3 ml INH RQ8 [facility] Last Admin: 07/27/17 07:19 Dose: 3 ml Amlodipine Besylate (Norvasc) 10 mg PO DAILY [facility] Apixaban (Eliquis) 5 mg PO BID [facility] Last Admin: 07/27/17 09:08 Dose: 5 mg Aspirin (Aspirin) 325 mg PO DAILY [facility] Last Admin: 07/27/17 09:08 Dose: 325 mg Docusate Sodium (Colace) 100 mg PO BID [facility] Last Admin: 07/27/17 09:18 Dose: Not Given Ergocalciferol (Drisdol 50,000 Intl Units Cap) 1 cap PO Q7D [facility] Last Admin: 07/26/17 13:15 Dose: 1 cap Ferrous Gluconate (Fergon) 324 mg PO TID [facility] Last Admin: 07/27/17 09:08 Dose: 324 mg Hydralazine HCl (Apresoline) 25 mg PO Q4 PRN PRN Reason: Other Cefepime HCl 1 gm/ Dextrose 50 mls @ 100 mls/hr IVPB Q24H [facility] PRN Reason: Protocol Last Admin: 07/27/17 11:27 Dose: 100 mls/hr Dextrose (Dextrose 5% In Water 1000 Ml) 1,000 mls @ 75 mls/hr IV .[id number] [facility] Last Admin: 07/26/17 22:14 Dose: Not Given Pantoprazole Sodium (Protonix Inj) 40 mg IVP BID [facility] Last Admin: 07/27/17 09:07 Dose: 40 mg Polyethylene Glycol (Miralax) 17 gm PO DAILY [facility] Last Admin: 07/27/17 09:18 Dose: Not Given Rosuvastatin Calcium (Crestor) 5 mg PO HS [facility] Last Admin: 07/26/17 21:35 Dose: Not Given Thiamine HCl (Vitamin B1 Tab) 100 mg PO DAILY [facility] Last Admin: 07/26/17 10:17 Dose: 100 mg Vitamin A (Vitamin A & D Oint Ud Foilpak) 1 ea TOP BID [facility] Last Admin: 07/27/17 09:18 Dose: Not Given Vitamin B Complex/Vit C/Folic Acid (Nephro-Paul) 1 tab PO 0800 [facility] Last Admin: 07/27/17 09:08 Dose: Not Given - Labs Labs: 07/27/17 06:29 07/27/17 06:31 PT 16.2 SECONDS (9.7-12.2) H 07/27/17 06:31 INR 1.5 07/27/17 06:31 APTT 29 SECONDS (21-34) 07/27/17 06:31
[2017-07-28] MEDS: Albuterol-Ipratrop 3 mg / 0.5 (3 ml) UD INH SCH ×3 (00:46→16:34)
--- NOTE | 2017-07-28 05:12 | PN ---
DATE: SUBJECTIVE: The patient was seen and examined at the bedside, looking comfortable. Feeling better. Sitting on the chair. No nausea, vomiting, diarrhea. No hematuria, hematochezia. No swelling of the legs. No chest pain. No palpitations. No headache or dizziness. PHYSICAL EXAMINATION: VITAL SIGNS: Temperature 98.3, pulse 51, respiratory rate 16, blood pressure 135/58, pulse oximetry is 81. HEENT: Head: Normocephalic, atraumatic. Eyes: PERRLA. Extraocular movements intact. Conjunctivae clear. Nose patent. Mucous membranes moist. NECK: Supple. No carotid bruits, JVD, or thyromegaly. CHEST: Bilaterally symmetrical. HEART: S1, S2 positive. LUNGS: Clear to auscultation. ABDOMEN: Soft. Bowel sounds present. No organomegaly. EXTREMITIES: No edema. No cyanosis. NEUROLOGIC: The patient is awake and alert. Moving all 4 extremities. No focal deficits. MEDICATIONS: DuoNeb, Altace, aspirin, Colace, vitamin D2, iron, hydralazine, cefepime, dextrose, pantoprazole, B1, vitamin A and B. LABORATORY DATA: White blood cell 3.9, hemoglobin 9.9, hematocrit 29.2, platelets 86. Sodium 152, potassium 3.7, BUN 52, creatinine 1, cholesterol 87. ASSESSMENT AND PLAN: Ms. Angela Mazariegos is an 87-year-old lady with leukopenia, anemia, thrombocytopenia, hypernatremia, renal insufficiency, has acute renal failure, congestive heart failure, hypertension, getting payton chronic obstructive pulmonary disease, was admitted with acute exacerbation of chronic obstructive pulmonary disease. Seen by service delivery manager, Dr. Lindsay Watts, and clinical faculty, Dr. Srinivas Rowley, in January. History of dementia, osteoarthritis. The patient has h/o bilateral deep venous thrombosis history, had IVC filter placed, and is on gastrointestinal and deep venous thrombosis prophylaxis. Desirae Murillo MD [facility]
[2017-07-28 06:15] LABS: BASO % 0.4 % (0.0-2.0); EOS # 0.1 K/uL (0.0-0.7); EOS % 2.9 % (0.0-4.0); HEMOGLOBIN 9.5 g/dL (11.0-16.0); LYMPH # 1.4 K/uL (1.0-4.3); LYMPH % 34.6 % (20.0-40.0); MEAN CELL VOLUME 101.7 fL (81.0-99.0); MEAN CORPUSCULAR HEMOGLOBIN 34.3 pg (27.0-31.0); MEAN CORPUSCULAR HGB CONC 33.8 g/dL (33.0-37.0); MEAN PLATELET VOLUME 10.1 fL (7.2-11.7); MONO # 0.6 K/uL (0.0-0.8); MONO % 13.6 % (0.0-10.0); NEUT % 48.5 % (50.0-75.0); NRBC % 0.4 % (0.0-2.0); RBC 2.76 Mil/uL (3.80-5.20); RED CELL DISTRIBUTION WIDTH 16.3 % (11.5-14.5); WHITE BLOOD COUNT 4.1 K/uL (4.8-10.8)
[2017-07-28 06:48] LABS: ALB/GLOB RATIO 0.9 (1.0-2.1); CALCIUM 9.2 mg/dl (8.6-10.4)
[2017-07-28] MEDS: Multivitamin Vitamin B Complex (Nephro-Vite) Tab PO SCH (08:44)
[2017-07-28] MEDS: Vitamins A & D Oint UD Foilpak TOP SCH ×2 (10:15→18:14)
[2017-07-28] MEDS: POLYETHYLENE GLYCOL 3350 17 GM/Dose PACKET PO SCH (10:34)
[2017-07-28 11:48] LABS: ALBUMIN (PEP) 3.2 g/dL (3.8-4.8); ALPHA-1-GLOBULIN (PEP) 0.5 g/dL (0.2-0.3)
--- NOTE | 2017-07-28 15:41 | CP.PCM.PN ---
Subjective - Date & Time of Evaluation Date of Evaluation: 07/28/17 Time of Evaluation: 15:40 - Subjective Subjective: Nephrology Consultation Note: Assessment: Stable Acute Kidney Injury (N17.9) ? etiology. 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 DEAN has resolved Hypertension control with meds as ordered. Patient not on ACEI/ARB due to DEAN Monitor Input/Output, daily weights and renal function with basic metabolic panel d/c IVF as normal renal function. 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 Glycemic control Further work up/management as per primary team pt stable for d/c from renal perspective Thanks for allowing me to participate in care of your patient. Will follow patient with you. Please call if any Qs. d/w team and family Dr Srinivas Rowley Office: [phone] Chief Complaint; None at this time Reason for consultation is acute kidney injury HPI: Pt is a 87-year-old female with history of dementia osteoarthritis Ckd stage III baseline grade 1.1-1.3 with GFR 55 Chronic obstructive pulmonary disease with pulmonary hypertension also bladder tumor patient had refused intervention, She was recently hospitalized for fall and humerus fracture and d/ c to rehab, came to hospital with shortness of breath ,elevated BNP and concern for congestive heart failure, hence she was diuresed, but also with DEAN since presentation and hence renal consulted Patient also with bilateral extensive deep DVT she had IVC filter placed and also on systemic a/c Denies OTC/herbal meds or NSAIDs No recent iodinated contrast exposure. No obvious episodes of low BP. ROS: Cardiovascular: No chest pain. Pulmonary: No shortness of breath now Gastrointestinal: denies abdominal pain No nausea. No vomiting. Genitourinary: No pain while urinating. Denies blood in urine. All other negative except as mentioned in HPI but limited due to her dementia Physical Examination: General Appearance: Comfortable, in no acute respiratory distress, co-operative . Vitals reviewed and noted as below Head; Atraumatic, normocephalic ENT: no ulcers no thrush. Tongue is midline. Oropharynx: no rash or ulcers. EYES: Pupils are equal, round and reactive to light accommodation. Eye muscles and extraocular movement intact. Sclera is anicteric. Neck; supple no lymphadenopathy, no thyromegaly or bruit Lungs: Normal respiratory rate/effort. Breath sounds bilateral equal and clear at present Heart: Normal rate. s1s2 normal. No rub or gallop. Extremities: no edema. No varicose veins Neurological: Patient is alert, awake and disoriented to place and time. No focal deficit. Strength bilateral appropriate and equal. she has dementia Skin: Warm and dry. Normal turgor. No rash. Palpitation: Normal elasticity for age Abdomen: Abdomen is soft. Bowel sounds +. There is no abdominal tenderness, no guarding/rigidity no organomegaly Psych: normal insight and normal affect/mood MSK: no joint tenderness or swelling. Digits and nails normal, no deformity : kidney not palpable Labs/imaging reviewed. Past medical history, past surgical history, family history, social history, allergy reviewed and noted as below Family hx: no hx of CKD. Rest non-contributory CT abdomen last Admission 2 weeks ago, imaging for kidney unremarkable except mild fullness UA 1+ protein has few RBCs and WBCs Lipase at 4.2 and came initially VQ scan negative Venous Doppler of the leg bilateral DVT Chest x-ray showed mild congestion Objective - Vital Signs/Intake and Output Vital Signs (last 24 hours): Temp Pulse Resp BP Pulse Ox 97.5 F L 88 20 138/57 L 96 07/28/17 12:00 07/28/17 12:00 07/28/17 12:00 07/28/17 12:00 07/28/17 08:00 Intake and Output: 07/28/17 07/28/17 06:59 18:59 Output Total 2000 Balance -2000 - Medications Medications: Current Medications Acetaminophen (Tylenol 325mg Tab) 650 mg PO Q4H PRN PRN Reason: Pain, Mild (1-3) Albuterol/Ipratropium (Duoneb 3 Mg/0.5 Mg (3 Ml) Ud) 3 ml INH RQ8 [facility] Last Admin: 07/28/17 07:38 Dose: 3 ml Amlodipine Besylate (Norvasc) 10 mg PO DAILY [facility] Last Admin: 07/28/17 10:15 Dose: 10 mg Apixaban (Eliquis) 5 mg PO BID [facility] Last Admin: 07/28/17 10:11 Dose: 5 mg Aspirin (Aspirin) 325 mg PO DAILY [facility] Last Admin: 07/28/17 10:11 Dose: 325 mg Docusate Sodium (Colace) 100 mg PO BID [facility] Last Admin: 07/28/17 10:35 Dose: Not Given Ergocalciferol (Drisdol 50,000 Intl Units Cap) 1 cap PO Q7D [facility] Last Admin: 07/26/17 13:15 Dose: 1 cap Ferrous Gluconate (Fergon) 324 mg PO TID [facility] Last Admin: 07/28/17 14:34 Dose: 324 mg Hydralazine HCl (Apresoline) 25 mg PO Q4 PRN PRN Reason: Other Cefepime HCl 1 gm/ Dextrose 50 mls @ 100 mls/hr IVPB Q24H [facility] PRN Reason: Protocol Last Admin: 07/28/17 10:34 Dose: 100 mls/hr Pantoprazole Sodium (Protonix Ec Tab) 40 mg PO BID [facility] Polyethylene Glycol (Miralax) 17 gm PO DAILY [facility] Last Admin: 07/28/17 10:34 Dose: Not Given Rosuvastatin Calcium (Crestor) 5 mg PO HS [facility] Last Admin: 07/27/17 22:06 Dose: Not Given Thiamine HCl (Vitamin B1 Tab) 100 mg PO DAILY [facility] Last Admin: 07/28/17 10:15 Dose: 100 mg Vitamin A (Vitamin A & D Oint Ud Foilpak) 1 ea TOP BID [facility] Last Admin: 07/28/17 10:15 Dose: 1 ea Vitamin B Complex/Vit C/Folic Acid (Nephro-Paul) 1 tab PO 0800 [facility] Last Admin: 07/28/17 08:44 Dose: 1 tab - Labs Labs: 07/28/17 05:59 07/28/17 06:02 PT 16.2 SECONDS (9.7-12.2) H 07/27/17 06:31 INR 1.5 07/27/17 06:31 APTT 29 SECONDS (21-34) 07/27/17 06:31
--- NOTE | 2017-07-28 16:56 | CP.PCM.PN ---
Subjective - Date & Time of Evaluation Date of Evaluation: 07/28/17 Time of Evaluation: 16:53 - Subjective Subjective: Feeling better. But still coughing. Objective - Vital Signs/Intake and Output Vital Signs (last 24 hours): Temp Pulse Resp BP Pulse Ox 97.5 F L 88 20 138/57 L 96 07/28/17 12:00 07/28/17 12:00 07/28/17 12:00 07/28/17 12:00 07/28/17 08:00 Intake and Output: 07/28/17 07/28/17 06:59 18:59 Output Total 1999 Balance -1999 - Medications Medications: Current Medications Acetaminophen (Tylenol 325mg Tab) 650 mg PO Q4H PRN PRN Reason: Pain, Mild (1-3) Albuterol/Ipratropium (Duoneb 3 Mg/0.5 Mg (3 Ml) Ud) 3 ml INH RQ8 [facility] Last Admin: 07/28/17 16:34 Dose: 3 ml Amlodipine Besylate (Norvasc) 10 mg PO DAILY [facility] Last Admin: 07/28/17 10:15 Dose: 10 mg Apixaban (Eliquis) 5 mg PO BID [facility] Last Admin: 07/28/17 10:11 Dose: 5 mg Aspirin (Aspirin) 325 mg PO DAILY [facility] Last Admin: 07/28/17 10:11 Dose: 325 mg Docusate Sodium (Colace) 100 mg PO BID [facility] Last Admin: 07/28/17 10:35 Dose: Not Given Ergocalciferol (Drisdol 50,000 Intl Units Cap) 1 cap PO Q7D [facility] Last Admin: 07/26/17 13:15 Dose: 1 cap Ferrous Gluconate (Fergon) 324 mg PO TID [facility] Last Admin: 07/28/17 14:34 Dose: 324 mg Hydralazine HCl (Apresoline) 25 mg PO Q4 PRN PRN Reason: Other Cefepime HCl 1 gm/ Dextrose 50 mls @ 100 mls/hr IVPB Q24H [facility] PRN Reason: Protocol Last Admin: 07/28/17 10:34 Dose: 100 mls/hr Pantoprazole Sodium (Protonix Ec Tab) 40 mg PO BID [facility] Polyethylene Glycol (Miralax) 17 gm PO DAILY [facility] Last Admin: 07/28/17 10:34 Dose: Not Given Rosuvastatin Calcium (Crestor) 5 mg PO HS [facility] Last Admin: 07/27/17 22:06 Dose: Not Given Thiamine HCl (Vitamin B1 Tab) 100 mg PO DAILY [facility] Last Admin: 07/28/17 10:15 Dose: 100 mg Vitamin A (Vitamin A & D Oint Ud Foilpak) 1 ea TOP BID [facility] Last Admin: 07/28/17 10:15 Dose: 1 ea Vitamin B Complex/Vit C/Folic Acid (Nephro-Paul) 1 tab PO 0800 [facility] Last Admin: 07/28/17 08:44 Dose: 1 tab - Labs Labs: 07/28/17 05:59 07/28/17 06:02 PT 16.2 SECONDS (9.7-12.2) H 07/27/17 06:31 INR 1.5 07/27/17 06:31 APTT 29 SECONDS (21-34) 07/27/17 06:31 - Head Exam Head Exam: NORMOCEPHALIC - Neck Exam Neck Exam: Normal Inspection - Respiratory Exam Respiratory Exam: Clear to Ausculation Bilateral - Cardiovascular Exam Cardiovascular Exam: REGULAR RHYTHM - Extremities Exam Extremities Exam: Normal Inspection - Neurological Exam Neurological Exam: Oriented x3 Assessment and Plan (1) Acute renal failure Assessment & Plan: Improving. Continue hydration. Status: Acute (2) Congestive heart failure Assessment & Plan: Improved, No further cardiac work-up until renal function is improved. Status: Acute (3) HTN (hypertension) Assessment & Plan: Controlled. Continue current care. Status: Chronic
[2017-07-28] MEDS: Pantoprazole 40 mg EC Tab PO SCH (18:14)
[2017-07-29] MEDS: Albuterol-Ipratrop 3 mg / 0.5 (3 ml) UD INH SCH ×2 (00:47→07:55)
[2017-07-29 06:49] VITALS: RESP 18
[2017-07-29 07:11] LABS: BASO % 0.5 % (0.0-2.0); EOS # 0.1 K/uL (0.0-0.7); EOS % 2.9 % (0.0-4.0); HEMOGLOBIN 9.5 g/dL (11.0-16.0); LYMPH # 1.5 K/uL (1.0-4.3); MEAN CELL VOLUME 102.4 fL (81.0-99.0); MEAN CORPUSCULAR HEMOGLOBIN 34.7 pg (27.0-31.0); MEAN CORPUSCULAR HGB CONC 33.9 g/dL (33.0-37.0); MEAN PLATELET VOLUME 10.5 fL (7.2-11.7); MONO # 0.6 K/uL (0.0-0.8); MONO % 12.9 % (0.0-10.0); NEUT # 2.1 K/uL (1.8-7.0); NEUT % 49.7 % (50.0-75.0); NRBC % 0.3 % (0.0-2.0); RBC 2.73 Mil/uL (3.80-5.20); RED CELL DISTRIBUTION WIDTH 16.7 % (11.5-14.5); WHITE BLOOD COUNT 4.3 K/uL (4.8-10.8)
[2017-07-29 07:43] LABS: ALB/GLOB RATIO 1.1 (1.0-2.1); ALBUMIN 3.4 g/dL (3.5-5.0); CALCIUM 8.7 mg/dl (8.6-10.4)
[2017-07-29 07:55] VITALS: TEMP 97.6; O2SAT 96
[2017-07-29] MEDS: Multivitamin Vitamin B Complex (Nephro-Vite) Tab PO SCH ×2 (09:37→09:39)
[2017-07-29] MEDS: Vitamins A & D Oint UD Foilpak TOP SCH (09:38)
[2017-07-29] MEDS: Pantoprazole 40 mg EC Tab PO SCH (09:38)
[2017-07-29] MEDS: POLYETHYLENE GLYCOL 3350 17 GM/Dose PACKET PO SCH (09:38)
[2017-07-29 09:41] VITALS: BP 130/72
--- NOTE | 2017-07-29 11:31 | CP.PCM.PN ---
Subjective - Date & Time of Evaluation Date of Evaluation: 07/29/17 Time of Evaluation: 11:29 - Subjective Subjective: PT CLEARED FOR D/C TODAY PER DR. VELIZ TO [facility] (PER NOTES, PT'S DAUGHTER IN AGREEMENT WITH PLAN). I DISCUSSED PLAN WITH DR. ROSAS AND HE IS IN AGREEMENT WITH D/C TO [facility] TODAY AND REQUESTS A F/U IN 1 WEEK IN HIS OFFICE. AT THIS TIME HE IS STILL WAITING FOR THE RENAL FUNCTION TO IMPROVE; DISCUSSED THIS MORNING'S LABS WITH DR. ROSAS. PT TO BE FOLLOWED BY DR. VELIZ AT [facility]. TO FINALIZE TRANSPORTATION ARRANGEMENTS FOR THIS AFTERNOON. NO FURTHER ORDERS. Objective - Vital Signs/Intake and Output Vital Signs (last 24 hours): Temp Pulse Resp BP Pulse Ox 97.6 F 78 18 130/72 96 07/29/17 07:10 07/29/17 07:10 07/29/17 07:10 07/29/17 09:41 07/29/17 07:10 Intake and Output: 07/29/17 07/29/17 06:59 18:59 Intake Total 120 Output Total 300 Balance -180 - Medications Medications: Current Medications Acetaminophen (Tylenol 325mg Tab) 650 mg PO Q4H PRN PRN Reason: Pain, Mild (1-3) Albuterol/Ipratropium (Duoneb 3 Mg/0.5 Mg (3 Ml) Ud) 3 ml INH RQ8 [facility] Last Admin: 07/29/17 07:55 Dose: 3 ml Amlodipine Besylate (Norvasc) 10 mg PO DAILY [facility] Last Admin: 07/29/17 09:37 Dose: 10 mg Apixaban (Eliquis) 5 mg PO BID [facility] Last Admin: 07/29/17 09:38 Dose: 5 mg Aspirin (Aspirin) 325 mg PO DAILY [facility] Last Admin: 07/29/17 09:37 Dose: 325 mg Docusate Sodium (Colace) 100 mg PO BID [facility] Last Admin: 07/29/17 09:40 Dose: Not Given Ergocalciferol (Drisdol 50,000 Intl Units Cap) 1 cap PO Q7D [facility] Last Admin: 07/26/17 13:15 Dose: 1 cap Ferrous Gluconate (Fergon) 324 mg PO TID [facility] Last Admin: 07/29/17 09:45 Dose: 324 mg Hydralazine HCl (Apresoline) 25 mg PO Q4 PRN PRN Reason: Other Cefepime HCl 1 gm/ Dextrose 50 mls @ 100 mls/hr IVPB Q24H [facility] PRN Reason: Protocol Last Admin: 07/29/17 11:11 Dose: 100 mls/hr Pantoprazole Sodium (Protonix Ec Tab) 40 mg PO BID [facility] Last Admin: 07/29/17 09:38 Dose: 40 mg Polyethylene Glycol (Miralax) 17 gm PO DAILY [facility] Last Admin: 07/29/17 09:38 Dose: Not Given Rosuvastatin Calcium (Crestor) 5 mg PO HS [facility] Last Admin: 07/28/17 21:01 Dose: 5 mg Thiamine HCl (Vitamin B1 Tab) 100 mg PO DAILY [facility] Last Admin: 07/29/17 09:38 Dose: 100 mg Vitamin A (Vitamin A & D Oint Ud Foilpak) 1 ea TOP BID [facility] Last Admin: 07/29/17 09:38 Dose: 1 ea Vitamin B Complex/Vit C/Folic Acid (Nephro-Paul) 1 tab PO 0800 [facility] Last Admin: 07/29/17 09:39 Dose: Not Given - Labs Labs: 07/29/17 07:01 07/29/17 07:01 PT 16.2 SECONDS (9.7-12.2) H 07/27/17 06:31 INR 1.5 07/27/17 06:31 APTT 29 SECONDS (21-34) 07/27/17 06:31
[2017-07-29 11:37] VITALS: PULSE 83
--- NOTE | 2017-07-29 13:15 | CP.PCM.PN ---
Subjective - Date & Time of Evaluation Date of Evaluation: 07/29/17 Time of Evaluation: 13:00 - Subjective Subjective: House resident paged to remove PICC line. Line was removed. tip intact act 37. Pressure was applied. no blood loss Site covered with gauze and tegaderm. Patient tolerated well. Frieda Samayoa DO PGY2 Objective - Vital Signs/Intake and Output Vital Signs (last 24 hours): Temp Pulse Resp BP Pulse Ox 97.6 F 83 18 130/72 96 07/29/17 07:10 07/29/17 08:00 07/29/17 07:10 07/29/17 09:41 07/29/17 07:10 Intake and Output: 07/29/17 07/29/17 06:59 18:59 Intake Total 120 100 Output Total 300 Balance -180 100 - Medications Medications: Current Medications Acetaminophen (Tylenol 325mg Tab) 650 mg PO Q4H PRN PRN Reason: Pain, Mild (1-3) Albuterol/Ipratropium (Duoneb 3 Mg/0.5 Mg (3 Ml) Ud) 3 ml INH RQ8 [facility] Last Admin: 07/29/17 07:55 Dose: 3 ml Amlodipine Besylate (Norvasc) 10 mg PO DAILY [facility] Last Admin: 07/29/17 09:37 Dose: 10 mg Apixaban (Eliquis) 5 mg PO BID [facility] Last Admin: 07/29/17 09:38 Dose: 5 mg Aspirin (Aspirin) 325 mg PO DAILY [facility] Last Admin: 07/29/17 09:37 Dose: 325 mg Docusate Sodium (Colace) 100 mg PO BID [facility] Last Admin: 07/29/17 09:40 Dose: Not Given Ergocalciferol (Drisdol 50,000 Intl Units Cap) 1 cap PO Q7D [facility] Last Admin: 07/26/17 13:15 Dose: 1 cap Ferrous Gluconate (Fergon) 324 mg PO TID [facility] Last Admin: 07/29/17 09:45 Dose: 324 mg Hydralazine HCl (Apresoline) 25 mg PO Q4 PRN PRN Reason: Other Cefepime HCl 1 gm/ Dextrose 50 mls @ 100 mls/hr IVPB Q24H [facility] PRN Reason: Protocol Last Admin: 07/29/17 11:11 Dose: 100 mls/hr Pantoprazole Sodium (Protonix Ec Tab) 40 mg PO BID [facility] Last Admin: 07/29/17 09:38 Dose: 40 mg Polyethylene Glycol (Miralax) 17 gm PO DAILY [facility] Last Admin: 07/29/17 09:38 Dose: Not Given Rosuvastatin Calcium (Crestor) 5 mg PO HS [facility] Last Admin: 07/28/17 21:01 Dose: 5 mg Thiamine HCl (Vitamin B1 Tab) 100 mg PO DAILY [facility] Last Admin: 07/29/17 09:38 Dose: 100 mg Vitamin A (Vitamin A & D Oint Ud Foilpak) 1 ea TOP BID [facility] Last Admin: 07/29/17 09:38 Dose: 1 ea Vitamin B Complex/Vit C/Folic Acid (Nephro-Paul) 1 tab PO 0800 [facility] Last Admin: 07/29/17 09:39 Dose: Not Given - Labs Labs: 07/29/17 07:01 07/29/17 07:01 PT 16.2 SECONDS (9.7-12.2) H 07/27/17 06:31 INR 1.5 07/27/17 06:31 APTT 29 SECONDS (21-34) 07/27/17 06:31
--- NOTE | 2017-07-29 13:47 | PN ---
DATE: 07/28/2017 SUBJECTIVE: The patient was seen and examined at the bedside on 07/28/2017, looking comfortable. No nausea, vomiting, diarrhea, hematuria, or hematochezia. No swelling of the legs. No chest pain. No palpitation. No headache or dizziness. PHYSICAL EXAMINATION: VITAL SIGNS: Temperature 97.5, pulse 88, respiratory rate 20, blood pressure 138/57, pulse oximetry 96%. HEENT: Head: Normocephalic, atraumatic. Eyes: PERRLA. Extraocular muscles intact. Conjunctivae clear. Nose: Patent. Mucous membranes moist. NECK: Supple. No carotid bruit. No JVD or thyromegaly. CHEST: Bilaterally symmetrical. HEART: S1 and S2, positive. LUNGS: Clear to auscultation. ABDOMEN: Soft. Bowel sounds positive. No organomegaly. EXTREMITIES: No edema, no cyanosis. NEUROLOGICAL: The patient is awake and alert. Moving all lower extremities. No focal deficits. MEDICATIONS: Norvasc, Eliquis, aspirin, Colace, vitamin D, ferrous gluconate, hydralazine, dextrose, Protonix, MiraLAX, Crestor, vitamin B1. LABORATORY DATA: White blood cells 4.1, hemoglobin 9.5, hematocrit 28.1, platelets 82. Sodium 152, potassium 3.7, BUN 50, creatinine 1.1, glucose 97. ASSESSMENT AND PLAN: Ms. Angela Mazariegos is an 87-year-old female with anemia, recent leukopenia, anemia, thrombocytopenia, pancytopenia, hyperchloremia, has acute renal failure, improving with slow hydration, congestive heart failure improved, no further cardiac workup. Renal function has improved. As per Cardiology, hypertension, continue present treatment. Exacerbation of chronic obstructive pulmonary disease, skating rink manager is on the case. Proctologist is on the case. History of chronic kidney disease, history of dementia, osteoarthritis, history of fall, humerus fracture, was getting physical therapy in rehab. shortness of breath, exacerbation of chronic obstructive pulmonary disease and congestive heart failure. The patient has history of bilateral extensive deep vein thrombosis, she had inferior vena cava filter placed, and also on systemic MILAGROS. Gastrointestinal and deep venous thrombosis prophylaxis. Repeat labs. We will follow up. Desirae Murillo MD [facility] # [id number] MIGUELINA
--- NOTE | 2017-08-04 13:35 | DS ---
The patient is an 87-year-old female. The patient was admitted on 07/22/2017, discharged back to [facility] 07/29/2017. CHIEF COMPLAINT: Shortness of breath. HISTORY OF PRESENT ILLNESS: Ms. Angela Mazariegos is an 87 years old female, was getting rehab in [facility], has a history of COPD, asthma, started with shortness of breath. According to the patient, she was having shortness of breath for the past two days, now she cannot breathe, found to have severe respiratory distress with initial low pulse oxygenation. She was placed on nonrebreather with increased pulse oxygenation up to 90; however, the patient was still tachypneic, severe respiratory distress, brought to [facility] ER, admitted to the unit and chest x-ray done. Lung V/Q scan done. Duplex of lower extremity done. CAT scan of the head was also done. Renal scan nuclear is done. Seen by Dr. Lindsay Watts, ski patrol officer; Srinivas Rowley, terra cotta roofer helper, and Dr. Parag Long, cattle trader. Dr. Cohen also saw the patient. The patient improved. Sent back to rehab place. Follow up with the terra cotta roofer helper as outpatient. PAST MEDICAL HISTORY: As above, hypertension, advanced dementia, emphysema, COPD, hypercholesterolemia, hyperlipidemia, pneumonia, chronic kidney disease, now acute and chronic; bladder tumor/mass. FAMILY HISTORY: Father, mother, noncontributory. HABITS: No alcohol, no substance abuse. Not drinking. REVIEW OF SYSTEMS: The patient was seen and examined on the bedside on 07/29/2017, looking comfortable. No nausea, vomiting, or diarrhea. No hematuria or hematochezia. No swelling of the leg. No chest pain. No palpitation. No headache or dizziness. PICC line was removed. Review of systems 12 point negative except above. PHYSICAL EXAMINATION: VITAL SIGNS: Temperature 97.6, pulse 83, respiratory rate 18, blood pressure 130/72, pulse oximetry 96. HEENT: Head normocephalic, atraumatic. Eyes, PERRLA. Extraocular muscles intact. Conjunctivae clear. Nose patent. Mucous membranes moist. NECK: Supple. No carotid bruits. No JVD or thyromegaly. CHEST: Bilaterally symmetrical. HEART: S1, S2, positive. LUNGS: Clear to auscultation. ABDOMEN: Soft. Bowel sounds present. No organomegaly. EXTREMITIES: No edema. No cyanosis. NEUROLOGIC: The patient is awake and alert, moving all 4 extremities. No focal deficits. MEDICATIONS: Tylenol, Norvasc, Eliquis, aspirin, Colace, iron, Protonix, calcium. LABORATORY DATA: White blood cells 4.3, hemoglobin 9.8, hematocrit 28.2, platelets 80, sodium 149, potassium 3.9, BUN 39, creatinine 1.1, glucose 88. ASSESSMENT AND PLAN: Ms. Angela Mazariegos is an 87-year-old female with leukopenia, anemia, thrombocytopenia, practically pancytopenia, hypernatremia, was admitted with exacerbation of chronic obstructive pulmonary disease, asthma; has renal failure, improved with slow hydration. Congestive heart failure, improved. Liver function tests improved as per cardiology, surgical treatment. Sample Weaver, cattle trader and terra cotta roofer helper saw the patient. History of chronic kidney disease, dementia, osteoarthritis, fall, humerus fracture. Was getting physical therapy in rehab, sending back to rehab, PICC line removed. We will continue treatment there. Desirae Murillo MD
== END 2017-07-29 13:00 | DRG 166 ==
LOC: C.ER 20:54 → C.9I 22:56 → C.5S 07-29 06:23
PROVIDERS: ADMIT Internal Medicine; ATTEND Internal Medicine
PROC: 5A1955Z Respiratory Ventilation, Greater than 96 Consecutive Hours (ICD-10-PCS; principal; 2017-07-22)
PROC: 06H03DZ Insertion of Intraluminal Device into Inferior Vena Cava, Percutaneous Approach (ICD-10-PCS; 2017-07-24)
PROC: 02HV33Z Insertion of Infusion Device into Superior Vena Cava, Percutaneous Approach (ICD-10-PCS; 2017-07-25)
DX: J44.1 Chronic obstructive pulmonary disease with (acute) exacerbation (principal); I50.31 Acute diastolic (congestive) heart failure; I13.0 Hypertensive heart and chronic kidney disease with heart failure and stage 1 through stage 4 chronic kidney disease, or unspecified chronic kidney disease; E87.2 Acidosis; E87.0 Hyperosmolality and hypernatremia; N17.9 Acute kidney failure, unspecified; N25.81 Secondary hyperparathyroidism of renal origin; J45.901 Unspecified asthma with (acute) exacerbation; I82.441 Acute embolism and thrombosis of right tibial vein; I82.412 Acute embolism and thrombosis of left femoral vein; I27.20 Pulmonary hypertension, unspecified; F03.90 Unspecified dementia, unspecified severity, without behavioral disturbance, psychotic disturbance, mood disturbance, and anxiety; E87.5 Hyperkalemia; E78.5 Hyperlipidemia, unspecified; N18.3 Chronic kidney disease, stage 3 (moderate); K59.00 Constipation, unspecified; R09.02 Hypoxemia; E55.9 Vitamin D deficiency, unspecified; Z79.01 Long term (current) use of anticoagulants; Z87.891 Personal history of nicotine dependence; D69.6 Thrombocytopenia, unspecified